=== PATIENT | male | born 1945 | race Caucasian/White ===

== ENCOUNTER → 2016-10-20 | Outpatient (CLI) | payer BC ==
[2016-10-20 12:33] LABS: BLOOD UREA NITROGEN 24 mg/dl (7-18); BUN/CREATININE RATIO 15.8 (10-20); CARBON DIOXIDE 28 mmol/L (21-32); CHLORIDE 106 mmol/L (98-107); GLUCOSE 93 mg/dl (70-99); POTASSIUM 4.5 mmol/L (3.5-5.1); SODIUM 140 mmol/L (136-145)
[2016-10-20 12:38] LABS: CHOLESTEROL 293 mg/dl (0-200); CHOLESTEROL/HDL RATIO 6.2; HDL CHOLESTEROL 47 mg/dl; LDL CHOLESTEROL CALCULATED 222 mg/dl; TRIGLYCERIDES 119 mg/dl (0-150); VERY LOW DENSITY LIPOPROT CALC 24 mg/dl
== END | disposition home or self-care (01) ==
LOC: C.LABPVFM 08:15
PROVIDERS: ATTEND Family Medicine
DX: E78.5 Hyperlipidemia, unspecified (principal); I10 Essential (primary) hypertension

== ENCOUNTER → 2016-12-12 | Outpatient (CLI) | payer BC ==
[2016-12-12 13:08] LABS: BLOOD UREA NITROGEN 20 mg/dl (7-18); BUN/CREATININE RATIO 16.9 (10-20); CALCIUM 9.1 mg/dl (8.5-10.1); CARBON DIOXIDE 28 mmol/L (21-32); CHLORIDE 105 mmol/L (98-107); GLUCOSE 99 mg/dl (70-99); SODIUM 140 mmol/L (136-145)
[2016-12-12 14:17] LABS: URINE TOTAL PROTEIN < 5.0 mg/dl (0-11.9)
== END | disposition home or self-care (01) ==
LOC: C.LABPVFM 08:38
PROVIDERS: ATTEND Family Medicine
DX: I10 Essential (primary) hypertension (principal); R79.89 Other specified abnormal findings of blood chemistry

== ENCOUNTER → 2017-07-16 | Outpatient (CLI) | payer BC ==
[2017-07-16 12:15] LABS: HEMATOCRIT 46.5 % (42-52); MEAN CELL VOLUME 88.9 fL (80-100); MEAN CORPUSCULAR HEMOGLOBIN 31.7 pg (25-34); MEAN CORPUSCULAR HGB CONC 35.7 g/dl (32-36); MEAN PLATELET VOLUME 9.4 fL (7.4-10.4); PLATELET COUNT 210 K/uL (130-400); RED BLOOD COUNT 5.23 M/uL (4.7-6.1); WHITE BLOOD COUNT 7.54 K/uL (4.8-10.8)
[2017-07-16 12:33] LABS: ESTIMATED AVERAGE GLUCOSE 105 mg/dl; HA1C FLAG Normal (Normal)
[2017-07-16 17:53] LABS: CHOLESTEROL/HDL RATIO 4.3
[2017-07-16 17:59] LABS: ALT/SGPT 44 U/L (12-78); AST/SGOT 26 U/L (15-37); BLOOD UREA NITROGEN 19 mg/dl (7-18); BUN/CREATININE RATIO 15.3 (10-20); CALCIUM 8.9 mg/dl (8.5-10.1); CARBON DIOXIDE 29 mmol/L (21-32); CHLORIDE 105 mmol/L (98-107); CREATININE 1.24 mg/dl (0.60-1.40); GLUCOSE 82 mg/dl (70-99); POTASSIUM 3.8 mmol/L (3.5-5.1); SODIUM 138 mmol/L (136-145)
[2017-07-16 18:01] LABS: ALB/GLOB RATIO 1.1 (0.9-2); ALKALINE PHOSPHATASE 67 U/L (45-117)
== END | disposition home or self-care (01) ==
LOC: C.LABBFT 10:40
PROVIDERS: ATTEND Internal Medicine
DX: I10 Essential (primary) hypertension (principal); E78.5 Hyperlipidemia, unspecified; N64.59 Other signs and symptoms in breast; E87.6 Hypokalemia; R73.01 Impaired fasting glucose

== ENCOUNTER 2024-10-10 15:05 | Observation (INO) ==
[2024-10-10 15:42] LABS: Basophils % (auto) 1.2 %; Eosinophils # (auto) 0.27 K/uL (0.00-0.50); Eosinophils % (auto) 3.2 %; Immature Granulocytes # (auto) 0.02 K/uL (0.01-0.20); Immature Granulocytes % (auto) 0.2 %; Lymphocytes # (auto) 1.63 K/uL (1.20-3.40); Lymphocytes % (auto) 19.4 %; Mean Corpuscular Hemoglobin 30.8 pg (25.0-34.0); Mean Corpuscular Hgb Conc 35.6 g/dL (32.0-36.0); Mean Corpuscular Volume 86.7 fL (80.0-100.0); Mean Platelet Volume 9.4 fL (9.4-12.4); Monocytes % (auto) 9.5 %; Neutrophils % (auto) 66.5 %; Platelet Count 205 K/uL (130-400); RDW Coefficient of Variation 12.2 % (11.5-14.5); RDW Standard Deviation 38.5 fL (36.4-46.3); Red Blood Count 5.19 M/uL (4.70-6.10); White Blood Count 8.42 K/ul (4.8-10.8)
[2024-10-10 15:59] LABS: Albumin Globulin Ratio 1.4 (0.9-2); Albumin Level 4.5 gm/dl (3.4-5.0); BUN Creatinine Ratio 11.4 (10-20); Bilirubin,Total 1.2 mg/dl (0.2-1.0); Calcium 9.7 mg/dl (8.6-10.3); Creatinine Clr Calc Pharmacy 60.8 ml/min; Globulin 3.2 gm/dl (2.5-4.0); Potassium 3.7 mmol/L (3.5-5.1); Total Protein 7.7 gm/dl (6.0-8.3)
[2024-10-10 16:05] LABS: Troponin I High Sensitivity 6.5 pg/ml (0-20)
[2024-10-10 16:13] LABS: Partial Thromboplastin Time 26 Seconds (21-31); Prothrombin Time 10.9 Seconds (9.0-12.0)
--- NOTE | 2024-10-10 16:26 | XRay Report ---
EXAM: Radiograph of the Chest 1 View INDICATION: Hypertension TECHNIQUE: Frontal view of the chest. COMPARISON: No relevant prior studies available. FINDINGS: Lungs and pleural spaces: No consolidation or pulmonary edema. No pleural effusion or pneumothorax. Heart: Shape and configuration within normal limits allowing for technique. Mediastinum: Normal contour. Bones/joints: No fracture, erosion or dislocation. Soft tissues: No abnormality noted. No radiopaque foreign body noted. Vasculature: The aorta is ectatic with mild arch calcification. Upper abdomen: No abnormality noted. IMPRESSION: No acute cardiopulmonary disease. Ectatic aorta is generally an incidental finding. If there is clinical concern for acute aortic abnormality, CT angiogram of the chest may be of benefit. ACT 112: N/A Electronically signed by Veronica Love 10-10-2024 4:24 PM
--- NOTE | 2024-10-10 17:29 | Emergency Department Note ---
History of Present Illness General Chief complaint: Hypertension Stated complaint: HIGH BLOOD PRESSURE Time Seen by Provider: 10/10/24 17:07 History of Present Illness This is a 79-year-old male that presents to the emergency department via private vehicle with complaints of "elevated blood pressure". The patient states that he normally checks his blood pressure about once a week. He notes that this past week has been unusually high, measuring into the 180s yesterday and today. He denies any headache but notes the head feels "heavy". The patient denies any fevers, chills, nausea or vomiting. No chest pain or shortness of breath. No dizziness or vision change. The patient does note that over the past few days while working with firewood and such he notes some shortness of breath with exertion. He questions if perhaps this could be just some deconditioning. The patient does take benazepril, last dose was this morning and was 40 mg. Home Medications Medication Instructions Recorded Confirmed Type simvastatin 40 mg tablet 40 mg PO HS #90 tabs 12/26/19 10/10/24 Rx garlic 300 mg PO DAILY 06/24/20 10/10/24 History rzematbzjmhw-ynp-zyefn acid-vit 1 tab PO DAILY 06/24/20 10/10/24 History K-lycop 400 mcg-20 mcg-370 mcg tablet (Men's 50 Plus Multivitamin) omega-3 fatty acids 1,000 mg 1,000 mg PO DAILY 06/24/20 10/10/24 History capsule (Fish Oil Concentrate) benazepril 20 mg tablet 40 mg PO DAILY 10/10/24 10/10/24 History potassium 99 mg tablet 99 mg PO DAILY 10/10/24 10/10/24 History Allergies Allergy/AdvReac Type Severity Reaction Status Date / Time Penicillins Allergy Intermediate throat Verified 10/10/24 20:34 swelling Past Med/Surg History Problem List (Updated 10/10/24 @ 23:27 by Miquel Dominguez PA-C) Dyspnea on exertion (Acute) Hypertensive urgency (Acute) Erectile disorder due to 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 Screening for malignant neoplasm of prostate Hypertension (Chronic) Hypercholesteremia (Chronic) Medical History Diverticulosis of colon Hand injury Knee pain, left Myalgia Olfactory hallucination Swelling, mass, or lump in chest Tear of medial collateral ligament of left knee Surgical History H/O spinal fusion Family History Father Coronary heart disease Bone cancer Myocardial infarction Mother Emphysema lung Grandmother (Paternal) Diabetes Denies family history of Ovarian cancer Prostate cancer Breast cancer Colorectal cancer Social History Smoking Status: Former smoker Tobacco Type: Cigarettes Age Started Using Tobacco: 15; Age Quit Using Tobacco: 31; packs per day: 2; Smoking End Date: "When I was 31"; Second Hand Exposure: Yes; Do You Dip or Chew Tobacco: No; Hx Alcohol Use: No Hx Substance Use: No Preferred Language: Georgian Communication Ability: Effective Visual Impairment: No Limitations Hearing Ability: Hard of Hearing Campaign Assistant Required: No Beliefs That Will Affect Care: None marital status: Current Living Situation: Spouse current occupational status: retired current occupation: retired from [employer] Other Information That Helps Us Care for You: No Feels Safe at Home: Yes Safety Concerns: Feels Safe At This Time Childhood Exposure to Second-Hand Smoke: Yes Diet: low carbohydrate and low salt Dental Care, Regularly: Yes Physical Activity Frequency: Daily Seatbelt Use: sometimes Sunscreen Use: Yes Assistive Devices: Glasses Review of Systems A total of 10 systems reviewed and were otherwise negative Physical Exam Vital Signs Vital Signs - 24 hr 10/10/24 15:11 10/10/24 16:54 10/10/24 16:54 Temperature 36.6 C Temperature Source Temporal Artery Scan Pulse Rate 75 Pulse Rate [Apical] 64 Pulse Rhythm Pulse Rhythm [Apical] Regular Pulse Strength [Apical] Normal Respiratory Rate 14 20 Respiratory Effort / Characteristics Non-Labored Spontaneous Non-Labored Spontaneous Respiratory Depth Normal Normal Respiratory Pattern Regular Blood Pressure 195/94 H Blood Pressure [Right Arm] 191/117 H Blood Pressure Mean 127 Blood Pressure Mean [Right Arm] 141 Blood Pressure Position [Right Arm] Sitting Pulse Oximetry 94 95 Oxygen Delivery Method Room Air Room Air Room Air Sepsis Recent Fever Within 48 Hours No Sepsis New/Unexplained Change in Mental Status No Sepsis Action Taken by Nursing No Action Required 10/10/24 16:54 10/10/24 16:56 10/10/24 17:27 Temperature Temperature Source Pulse Rate 66 65 Pulse Rate [Apical] 65 Pulse Rhythm Regular Pulse Rhythm [Apical] Regular Pulse Strength [Apical] Normal Respiratory Rate 20 20 Respiratory Effort / Characteristics Non-Labored Spontaneous Respiratory Depth Normal Respiratory Pattern Regular Blood Pressure Blood Pressure [Right Arm] 198/111 H Blood Pressure Mean Blood Pressure Mean [Right Arm] 140 Blood Pressure Position [Right Arm] Lying Pulse Oximetry 97 95 Oxygen Delivery Method Room Air Room Air Sepsis Recent Fever Within 48 Hours Sepsis New/Unexplained Change in Mental Status Sepsis Action Taken by Nursing 10/10/24 19:34 Temperature Temperature Source Pulse Rate Pulse Rate [Apical] 91 H Pulse Rhythm Pulse Rhythm [Apical] Regular Pulse Strength [Apical] Normal Respiratory Rate 18 Respiratory Effort / Characteristics Non-Labored Spontaneous Respiratory Depth Normal Respiratory Pattern Regular Blood Pressure Blood Pressure [Right Arm] 124/98 Blood Pressure Mean Blood Pressure Mean [Right Arm] 106 Blood Pressure Position [Right Arm] Sitting Pulse Oximetry 95 Oxygen Delivery Method Room Air Sepsis Recent Fever Within 48 Hours Sepsis New/Unexplained Change in Mental Status Sepsis Action Taken by Nursing VITAL SIGNS - Vital signs and nursing notes were reviewed. Hypertensive, otherwise stable and afebrile. GENERAL -79-year-old male appearing his stated age who is in no acute distress. Communicates well with provider and answers questions appropriately. SKIN - Without rashes. No meningeal or petechial rash. HEAD - NC/AT. EYES - PERRL with EOMI bilaterally. Sclera anicteric. EARS - No deformities of external structures noted on gross examination bilaterally. NOSE - Midline and without cyanosis. No epistaxis or purulent drainage noted. MOUTH/OROPHARYNX - Without perioral cyanosis. NECK - Neck with FROM. No nuchal rigidity. LUNGS - Chest wall symmetric without accessory muscle use, intercostals retractions, or central cyanosis. Normal vesicular breath sounds CTA B/L. No wheezes, rales, or rhonchi appreciated. CARDIAC - RRR EXTREMITIES - No clubbing or peripheral cyanosis. +5/5 strength noted in UE/LE bilaterally. NEUROLOGIC - Cranial nerves II through XII grossly intact. PSYCH -alert, oriented and pleasant on exam. Course Administered Medications Enalapril Maleate (Enalapril Maleate 10 Mg Tab) 20 mg PO DAILY AGUILA Stop: 11/10/24 08:59 Last Admin: 10/11/24 07:48 Dose: 20 mg Documented By: KIM Enoxaparin Sodium (Enoxaparin Inj 40 Mg/0.4 Ml Syr) 40 mg SQ [facility] Stop: 11/09/24 23:14 Last Admin: 10/10/24 23:34 Dose: Not Given Documented By: BRITTANEYT Hydrochlorothiazide (Hydrochlorothiazide 25 Mg Tab) [facility] Stop: 11/10/24 08:59 Last Admin: 10/11/24 07:47 Dose: 12.5 mg Documented By: KIM Hydroxyzine HCl (Hydroxyzine Hcl 10 Mg Tab) 10 mg PO QID PRN PRN Reason: Anxiety Stop: 11/09/24 23:00 Last Admin: 10/10/24 23:34 Dose: 10 mg Documented By: BRITTANEYT Simvastatin (Simvastatin 40 Mg Tab) 40 mg PO [facility] Stop: 11/09/24 22:37 Last Admin: 10/10/24 23:33 Dose: 40 mg Documented By: TO Discontinued Medications Amlodipine Besylate (Amlodipine Besylate 5 Mg Tab) 5 mg PO NOW ONE Stop: 10/10/24 20:36 Last Admin: 10/10/24 20:58 Dose: 5 mg Documented By: RAJENDRA Hydralazine HCl (Hydralazine Hcl 20 Mg/Ml Vial) 5 mg IV NOW ONE Stop: 10/10/24 19:40 Last Admin: 10/10/24 20:20 Dose: Not Given Documented By: RAJENDRA Ioversol (Optiray 320 125ml) 119 ml IV ONCE ONE Stop: 10/10/24 17:51 Last Admin: 10/10/24 17:50 Dose: 119 ml Documented By: AURELIO Medical Decision Making Laboratory Data 10/11/24 06:29 10/11/24 06:29 Lab Results 10/10/24 Range/Units 15:20 WBC 8.42 (4.8-10.8) K/ul RBC 5.19 (4.70-6.10) M/uL Hgb 16.0 (14.0-18.0) g/dl Hct 45.0 (42.0-52.0) % MCV 86.7 (80.0-100.0) fL MCH 30.8 (25.0-34.0) pg MCHC 35.6 (32.0-36.0) g/dL RDW Std Deviation 38.5 (36.4-46.3) fL RDW Coeff of Pollo 12.2 (11.5-14.5) % Plt Count 205 (130-400) K/uL MPV 9.4 (9.4-12.4) fL Immature Gran % (Auto) 0.2 % Neut % (Auto) 66.5 % Lymph % (Auto) 19.4 % [place] % (Auto) 9.5 % Eos % (Auto) 3.2 % Baso % (Auto) 1.2 % Neut # (Auto) 5.60 (1.40-6.50) K/uL Lymph # (Auto) 1.63 (1.20-3.40) K/uL [place] # (Auto) 0.80 H (0.11-0.59) K/uL Eos # (Auto) 0.27 (0.00-0.50) K/uL Baso # (Auto) 0.10 (0.00-0.20) K/uL Immature Gran # (Auto) 0.02 (0.01-0.20) K/uL PT 10.9 (9.0-12.0) Seconds INR 1.0 (0.9-1.1) APTT 26 (21-31) Seconds PTT Ratio 1.0 Sodium 140 (136-145) mmol/L Potassium 3.7 (3.5-5.1) mmol/L Chloride 106 (98-107) mmol/L Carbon Dioxide 30 (21-32) mmol/L Anion Gap 4 (3-11) BUN 13 (6-23) mg/dl Creatinine 1.14 (0.6-1.4) mg/dl Est Cr Clr Drug Dosing 60.8 ml/min eGFR 65.83 BUN/Creatinine Ratio 11.4 (10-20) Glucose 91 (70-99(Fasting)) mg/dl Calcium 9.7 (8.6-10.3) mg/dl Total Bilirubin 1.2 H (0.2-1.0) mg/dl AST 24 (13-39) U/L ALT 24 (7-52) U/L Alkaline Phosphatase 73 (34-104) U/L Troponin I High Sens 6.5 (0-20) pg/ml Total Protein 7.7 (6.0-8.3) gm/dl Albumin 4.5 (3.4-5.0) gm/dl Globulin 3.2 (2.5-4.0) gm/dl Albumin/Globulin Ratio 1.4 (0.9-2) Imaging Data Radiologist's Impression: Chest X-Ray 10/10/24 15:15 EXAM: Radiograph of the Chest 1 View INDICATION: Hypertension TECHNIQUE: Frontal view of the chest. COMPARISON: No relevant prior studies available. FINDINGS: Lungs and pleural spaces: No consolidation or pulmonary edema. No pleural effusion or pneumothorax. Heart: Shape and configuration within normal limits allowing for technique. Mediastinum: Normal contour. Bones/joints: No fracture, erosion or dislocation. Soft tissues: No abnormality noted. No radiopaque foreign body noted. Vasculature: The aorta is ectatic with mild arch calcification. Upper abdomen: No abnormality noted. IMPRESSION: No acute cardiopulmonary disease. Ectatic aorta is generally an incidental finding. If there is clinical concern for acute aortic abnormality, CT angiogram of the chest may be of benefit. ACT 112: N/A Electronically signed by Veronica Love 10-10-2024 4:24 PM Chest CTA 10/10/24 17:28 Clinical history: Dyspnea on exertion Technique: Axial computed tomography images were obtained of the chest after the administration of intravenous contrast according to the CT angiogram protocol Findings: There is no definite sign of pulmonary embolism. There is a 6 mm nodule in the superior segment of the left lower lobe. There is a 14 x 5 mm oval mild opacity in the left upper lobe adjacent to the hilum that could represent either lymph node or a parenchymal nodule. There is a 1 cm nodule in the left upper lobe also. There is no pleural effusion or pneumothorax. There is no sign of pulmonary fibrosis or other diffuse interstitial process. There is peripheral bronchial occlusion in both lower lobes There is mild mediastinal and bilateral hilar adenopathy, with lymph nodes measuring up to 1.3 cm in short axis. The thoracic aorta appears unremarkable with no sign of aneurysm or dissection. There is no pericardial effusion. There is coronary atherosclerosis There is a partially visualized left renal cyst. No fracture is seen. No focal osseous lesion is evident Impression: 1. No definite sign of pulmonary embolism 2. Mild mediastinal and bilateral hilar adenopathy, nonspecific in nature 3. Several pulmonary nodules, indeterminate in nature. A follow-up chest CT is recommended in 3 months Electronically signed by Murali Herrera 10-10-2024 6:29 PM Head CTA 10/10/24 17:28 Technique: Axial computed tomography images were obtained of the brain before and after the administration of intravenous contrast according to the CT angiogram protocol Findings: There is mild calcified plaque within the cavernous and supraclinoid segments of the internal carotid arteries bilaterally, without stenosis No definite stenosis or aneurysm is seen of the anterior, middle, or posterior cerebral artery circulations. The visualized vertebral arteries and the basilar artery appear unremarkable Impression: No definite stenosis or aneurysm of the intracranial arteries Electronically signed by Murali Herrera 10-10-2024 6:32 PM Neck CTA 10/10/24 17:28 Technique: Axial computed tomography images were obtained of the neck after the administration of intravenous contrast according to the CT angiogram protocol Findings: No stenosis is seen of the common carotid arteries bilaterally. There is calcified plaque in the left carotid bulb, without stenosis. The remainder of the internal carotid arteries appear patent bilaterally. No stenosis of the external carotid arteries is seen The vertebral arteries are patent bilaterally with no significant stenosis seen. 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 Impression: No definite stenosis of the neck arteries Electronically signed by Murali Herrera 10-10-2024 6:35 PM [facility] Narrative Patient was seen and evaluated as above in room A09. Review was performed of triage nursing notes and vital signs. Patient presents to us today for evaluation of elevated blood pressure reading at home and a heaviness in the head sensation. After obtaining a thorough history and physical examination the above work up was performed. Options of care were discussed with the patient. IV access was established. Labs were drawn. No leukocytosis or concerning anemia. Coags normal. No emergent metabolic disturbance. Mild elevation of T. bili at 1.2. Troponin negative. 1523: An EKG was performed and per my interpretation revealed normal sinus rhythm at a rate of [address] elevation. Chest x-ray per my interpretation without acute process. Radiologist did note that there was ectatic aorta. With the patient having some dyspnea on exertion in the setting of hypertensive state we will proceed with CT angio of the head, neck, chest. Results of these are as above. These were essentially negative other than some mild mediastinal and bilateral hilar adenopathy and pulmonary nodules which will require follow-up. Patient does not have any signs of endorgan damage. Troponin here is negative. Versus risk of inpatient versus outpatient management reviewed. At this time through shared medical decision making we will proceed with inpatient management further assessment. Case discussed with the hospitalist service. Please refer to further documentation regarding his stay. GCS: 15 In the evaluation and treatment of this patient the following differential diagnoses were entertained: WA, PE, dissection, electrolyte disturbance, hypertensive urgency/emergency, among others Attending Attestation: I Connor Whitney MD I have reviewed the advanced practitioner's documentation and agree with the plan of care. I accept the responsibility for the associated risk of managing the patient. I performed a substantive portion of the visit including involvement in all aspects of medical decision making. Impression & Plan Hypertensive urgency, Dyspnea on exertion Discharge Plan Visit Data Chief Complaint: Hypertension Stated Complaint: HIGH BLOOD PRESSURE ED Provider: Connor Whitney ED Midlevel Provider: Miquel Dominguez Discharge Problem: Hypertensive urgency, Dyspnea on exertion Patient Disposition: Admitted As Inpatient Condition: Good Discharge Instructions Interventions: ED Discharge Assessment Last Done: 10/10/24 22:00
[2024-10-10] MEDS: OPTIRAY 320 125ml IV ONE (17:50)
--- NOTE | 2024-10-10 18:30 | CT Scan Report ---
Clinical history: Dyspnea on exertion Technique: Axial computed tomography images were obtained of the chest after the administration of intravenous contrast according to the CT angiogram protocol Findings: There is no definite sign of pulmonary embolism. There is a 6 mm nodule in the superior segment of the left lower lobe. There is a 14 x 5 mm oval mild opacity in the left upper lobe adjacent to the hilum that could represent either lymph node or a parenchymal nodule. There is a 1 cm nodule in the left upper lobe also. There is no pleural effusion or pneumothorax. There is no sign of pulmonary fibrosis or other diffuse interstitial process. There is peripheral bronchial occlusion in both lower lobes There is mild mediastinal and bilateral hilar adenopathy, with lymph nodes measuring up to 1.3 cm in short axis. The thoracic aorta appears unremarkable with no sign of aneurysm or dissection. There is no pericardial effusion. There is coronary atherosclerosis There is a partially visualized left renal cyst. No fracture is seen. No focal osseous lesion is evident Impression: 1. No definite sign of pulmonary embolism 2. Mild mediastinal and bilateral hilar adenopathy, nonspecific in nature 3. Several pulmonary nodules, indeterminate in nature. A follow-up chest CT is recommended in 3 months Electronically signed by Murali Herrera 10-10-2024 6:29 PM
--- NOTE | 2024-10-10 18:32 | CT Scan Report ---
Technique: Axial computed tomography images were obtained of the brain before and after the administration of intravenous contrast according to the CT angiogram protocol Findings: There is mild calcified plaque within the cavernous and supraclinoid segments of the internal carotid arteries bilaterally, without stenosis No definite stenosis or aneurysm is seen of the anterior, middle, or posterior cerebral artery circulations. The visualized vertebral arteries and the basilar artery appear unremarkable Impression: No definite stenosis or aneurysm of the intracranial arteries Electronically signed by Mruali Herrera 10-10-2024 6:32 PM
--- NOTE | 2024-10-10 18:35 | CT Scan Report ---
Technique: Axial computed tomography images were obtained of the neck after the administration of intravenous contrast according to the CT angiogram protocol Findings: No stenosis is seen of the common carotid arteries bilaterally. There is calcified plaque in the left carotid bulb, without stenosis. The remainder of the internal carotid arteries appear patent bilaterally. No stenosis of the external carotid arteries is seen The vertebral arteries are patent bilaterally with no significant stenosis seen. 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 Impression: No definite stenosis of the neck arteries Electronically signed by Murali Herrera 10-10-2024 6:35 PM
--- NOTE | 2024-10-10 19:40 | History & Physical Report ---
Date of Service October 10, 2024 Assessment & Plan (1) Hypertensive urgency: Plan: Patient is 79-year-old male with PMH HTN, HLD presented to ER with complaint of high blood pressure x 1 day. Started checking BP at home and noted to have elevated BP's of 184/135. Denies SANZ, CP, dizziness, paresthesias, weakness. H/O exertional SOB with carrying wood. In ER BP 195/94, 198/111 CXR: No acute cardiopulmonary disease. Ectatic aorta is generally an incidental finding. CTA Head: No definite stenosis or aneurysm of the intracranial arteries CTA neck: No definite stenosis of the neck arteries CTA chest: No definite sign of pulmonary embolism. Mild mediastinal and bilateral hilar adenopathy, nonspecific in nature. Several pulmonary nodules, indeterminate in nature. A follow-up chest CT is recommended in 3 months Troponin negative. Initially ordereddose of Hydralazine however pt's BP self improves during ER course and it was not given Rechecked BP in ER Right arm BP: 159/95, Left arm BP: 167/100 at 20:02 and 20:03 Continues to deny any active CP, SOB, SANZ, dizziness, vision changes or paresthesias Give dose of amlodipine tonight Continue home benazepril Restart HCTZ. Will start at 12.5mg and likely need to titrate to his prior 25mg daily dose. Can consider starting aspirin 81mg daily Obtain resting echo EKG in am (2) Hypercholesteremia: Plan: Outpatient lipid panel on 10/06/2024: Total cholesterol: 233, LDL: 167, HDL: 46, triglycerides: 98 Continue atorvastatin #Abnormal CT Chest: CTA chest: Mild mediastinal and bilateral hilar adenopathy, nonspecific in nature. Several pulmonary nodules, indeterminate in nature. Will need follow-up chest CT in 3 months DVT Prophylaxis Lovenox SQ Admit med tele Full Code as per discussion with pt Follows with Dr Reinoso for routine care Pt was seen and care coordinated with Dr Moore. See addendum I spent a total of 65 minutes reviewing notes, outpatient records, labs, medication, coordinating, documenting and providing care for this patient excluding time spent in the performance of separately billed services and excluding time spent by another provider/QHP. History of Present Illness Chief Complaint: HTN Primary Care Provider: Jarvis Reinoso MD Patient is 79-year-old male with PMH HTN, HLD presented to ER with complaint of high blood pressure x 1 day. Per outpatient chart review seen by PCPs office on 10/06/2024 and BP was 144/90. Patient is on benazepril 40mg daily. He reports was previously also on HCTZ 25 mg daily. Patient states he self stopped HCTZ approximately 1 year ago. Patient reports since his blood pressures had been fairly controlled at PCPs office it was not restarted. Patient states typically will take his blood pressure at home once a month and SBP usually around 140. He reports his had a cardiac cath and stent placed last week and is monitoring her blood pressures at home so patient decided this week that he would start monitoring his blood pressure at home as well. States yesterday blood pressure 180s over 110s. He states he took his blood pressure several more times and continued to be elevated so he came to the ER for further evaluation. Patient denies any SANZ, chest pain, dizziness. He reports will have shortness of breath with exertion of carrying wood and sometimes exertion with walking on a incline. He states he is able to climb 2 sets of stairs without any shortness of breath. He states over the past several months has had 2 episodes of blurry vision. Last was 1 month ago. Did not check his BP's at those times. Denies fever/chills, diaphoresis, N/V/D/C, syncope, other vision changes, neck pain, CP, orthopnea, palpitations, cough, sore throat, rhinorrhea, abdominal pain, paresthesias, weakness, extremity weakness, extremity edema, rashes, urinary symptoms. Allergies Allergy/AdvReac Type Severity Reaction Status Date / Time Penicillins Allergy Intermediate throat Verified 10/10/24 20:34 swelling Home Medications Medication Instructions Recorded Confirmed Type simvastatin 40 mg tablet 40 mg PO HS #90 tabs 12/26/19 10/10/24 Rx garlic 300 mg PO DAILY 06/24/20 10/10/24 History iqxgnulqoqwt-pwn-uzgnk acid-vit 1 tab PO DAILY 06/24/20 10/10/24 History K-lycop 400 mcg-20 mcg-370 mcg tablet (Men's 50 Plus Multivitamin) omega-3 fatty acids 1,000 mg 1,000 mg PO DAILY 06/24/20 10/10/24 History capsule (Fish Oil Concentrate) benazepril 20 mg tablet 40 mg PO DAILY 10/10/24 10/10/24 History potassium 99 mg tablet 99 mg PO DAILY 10/10/24 10/10/24 History Past Med/Surg History Problem List (Updated 10/10/24 @ 23:27 by Miquel Dominguez PA-C) Dyspnea on exertion (Acute) Hypertensive urgency (Acute) Erectile disorder due to 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 Screening for malignant neoplasm of prostate Hypertension (Chronic) Hypercholesteremia (Chronic) Medical History Diverticulosis of colon Hand injury Knee pain, left Myalgia Olfactory hallucination Swelling, mass, or lump in chest Tear of medial collateral ligament of left knee Surgical History H/O spinal fusion Family History Father Coronary heart disease Bone cancer Myocardial infarction Mother Emphysema lung Grandmother (Paternal) Diabetes Denies family history of Ovarian cancer Prostate cancer Breast cancer Colorectal cancer Social History Smoking Status: Former smoker Tobacco Type: Cigarettes Age Started Using Tobacco: 15; Age Quit Using Tobacco: 31; packs per day: 2; Smoking End Date: "When I was 31"; Second Hand Exposure: Yes; Do You Dip or Chew Tobacco: No; Hx Alcohol Use: No Hx Substance Use: No Preferred Language: Hong Konger Communication Ability: Effective Visual Impairment: No Limitations Hearing Ability: Hard of Hearing Seo Team Lead Required: No Beliefs That Will Affect Care: None marital status: Current Living Situation: Spouse current occupational status: retired current occupation: retired from [employer] Other Information That Helps Us Care for You: No Feels Safe at Home: Yes Safety Concerns: Feels Safe At This Time Childhood Exposure to Second-Hand Smoke: Yes Diet: low carbohydrate and low salt Dental Care, Regularly: Yes Physical Activity Frequency: Daily Seatbelt Use: sometimes Sunscreen Use: Yes Assistive Devices: Glasses Review of Systems Review of Systems: All systems reviewed & are unremarkable except as noted in HPI & below Physical Exam Physical Exam: General: no distress, overweight male Head: normocephalic, atraumatic Eyes: conjunctiva non-injected, anicteric ENT: normal inspection external ears, nose, mucous membranes moist Neck: supple, trachea midline Lungs: clear, no respiratory distress, no wheezing/rhonchi/rales CV: RRR, no murmur, no pretibial edema Abd: normal BS, soft, non-tender Ext: no cyanosis, no calf tenderness Neuro: A&O x 3, no focal deficits noted, normal affect Skin: warm, dry Results & Data Results & Data Vital Signs (Past 12 Hours) Vital Signs Temp Pulse Pulse Resp BP BP Pulse Ox 10/10/24 19:34 91 H 18 124/98 95 10/10/24 17:27 65 20 198/111 H 95 10/10/24 16:56 65 10/10/24 16:54 66 20 97 10/10/24 16:54 10/10/24 16:54 64 20 191/117 H 95 10/10/24 15:11 36.6 C 75 14 195/94 H 94 O2 Del Method 10/10/24 19:34 Room Air 10/10/24 17:27 Room Air 10/10/24 16:56 10/10/24 16:54 Room Air 10/10/24 16:54 Room Air 10/10/24 16:54 Room Air 10/10/24 15:11 Room Air Laboratory Results Short CBC 10/10/24 Range/Units 15:20 WBC 8.42 (4.8-10.8) K/ul Hgb 16.0 (14.0-18.0) g/dl Hct 45.0 (42.0-52.0) % Plt Count 205 (130-400) K/uL BMP 10/10/24 15:20 Sodium 140 Potassium 3.7 Chloride 106 Carbon Dioxide 30 BUN 13 Creatinine 1.14 Glucose 91 Calcium 9.7 Liver Function 10/10/24 Range/Units 15:20 Total Bilirubin 1.2 H (0.2-1.0) mg/dl AST 24 (13-39) U/L ALT 24 (7-52) U/L Alkaline Phosphatase 73 (34-104) U/L Albumin 4.5 (3.4-5.0) gm/dl Diagnostic Findings Chest X-Ray 10/10/24 15:15 EXAM: Radiograph of the Chest 1 View INDICATION: Hypertension TECHNIQUE: Frontal view of the chest. COMPARISON: No relevant prior studies available. FINDINGS: Lungs and pleural spaces: No consolidation or pulmonary edema. No pleural effusion or pneumothorax. Heart: Shape and configuration within normal limits allowing for technique. Mediastinum: Normal contour. Bones/joints: No fracture, erosion or dislocation. Soft tissues: No abnormality noted. No radiopaque foreign body noted. Vasculature: The aorta is ectatic with mild arch calcification. Upper abdomen: No abnormality noted. IMPRESSION: No acute cardiopulmonary disease. Ectatic aorta is generally an incidental finding. If there is clinical concern for acute aortic abnormality, CT angiogram of the chest may be of benefit. ACT 112: N/A Electronically signed by Veronica Love 10-10-2024 4:24 PM Chest CTA 10/10/24 17:28 Clinical history: Dyspnea on exertion Technique: Axial computed tomography images were obtained of the chest after the administration of intravenous contrast according to the CT angiogram protocol Findings: There is no definite sign of pulmonary embolism. There is a 6 mm nodule in the superior segment of the left lower lobe. There is a 14 x 5 mm oval mild opacity in the left upper lobe adjacent to the hilum that could represent either lymph node or a parenchymal nodule. There is a 1 cm nodule in the left upper lobe also. There is no pleural effusion or pneumothorax. There is no sign of pulmonary fibrosis or other diffuse interstitial process. There is peripheral bronchial occlusion in both lower lobes There is mild mediastinal and bilateral hilar adenopathy, with lymph nodes measuring up to 1.3 cm in short axis. The thoracic aorta appears unremarkable with no sign of aneurysm or dissection. There is no pericardial effusion. There is coronary atherosclerosis There is a partially visualized left renal cyst. No fracture is seen. No focal osseous lesion is evident Impression: 1. No definite sign of pulmonary embolism 2. Mild mediastinal and bilateral hilar adenopathy, nonspecific in nature 3. Several pulmonary nodules, indeterminate in nature. A follow-up chest CT is recommended in 3 months Electronically signed by Murali Herrera 10-10-2024 6:29 PM Head CTA 10/10/24 17:28 Technique: Axial computed tomography images were obtained of the brain before and after the administration of intravenous contrast according to the CT angiogram protocol Findings: There is mild calcified plaque within the cavernous and supraclinoid segments of the internal carotid arteries bilaterally, without stenosis No definite stenosis or aneurysm is seen of the anterior, middle, or posterior cerebral artery circulations. The visualized vertebral arteries and the basilar artery appear unremarkable Impression: No definite stenosis or aneurysm of the intracranial arteries Electronically signed by Murali Herrera 10-10-2024 6:32 PM Neck CTA 10/10/24 17:28 Technique: Axial computed tomography images were obtained of the neck after the administration of intravenous contrast according to the CT angiogram protocol Findings: No stenosis is seen of the common carotid arteries bilaterally. There is calcified plaque in the left carotid bulb, without stenosis. The remainder of the internal carotid arteries appear patent bilaterally. No stenosis of the external carotid arteries is seen The vertebral arteries are patent bilaterally with no significant stenosis seen. 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 Impression: No definite stenosis of the neck arteries Electronically signed by Murali Herrera 10-10-2024 6:35 PM Supervising Physician Co-Signing Physician Notes delayed entry date of service noted above Attending Addendum: Case reviewed with the advanced practitioner. I have personally performed a history and physical examination on the patient. I have reviewed the advanced practitioner's documentation on the date of service referenced in note, and I agree with, and take responsibility for the plan of care. please refer to her notes for full details patient seen and examined, records reviewed by myself as well on exam, patient seen resting in bed, comfortable patient's son at bedside patient states he feels fine overall no headache, dizziness, chest pain, dyspnea, palpitations no other symptoms VS noted and reviewed oriented x3, not in distress, speaks in sentences with no effort nor accessory muscle use normal rate, regular rhythm, no murmurs clear breath sounds bilaterally non distended, soft, nontender no bipedal edema, erythema, warmth no neuro deficits all labs, imaging noted and reviewed ASSESSMENT AND PLAN> UNCONTROLLED HYPERTENSION Amlodipine 5mg this evening in AM, add HCTZ 12.5mg daily to usual Benazepril Echo CORONARY ATHEROSCLEROSIS seen on CT chest will need ASA once BP controlled further work up as outpatient PULMONARY NODULES Further work up, management, and ff up as outpatient other diagnoses and plan of care as per advanced practitioner's notes I spent a total of 35 minutes coordinating, documenting, and providing care for this patient, excluding time spent in the performance of separately billed services or time spent by another provider/QHP. Pernell Moore MD
[2024-10-10] MEDS: hydrALAZINE HCL 20 MG/ML VIAL IV ONE (20:20)
[2024-10-10] MEDS: amLODIPine BESYLATE 5 MG TAB PO ONE (20:58)
[2024-10-10] MEDS ORDERED: ACETAMINOPHEN 325 MG TAB PO PRN (22:38)
[2024-10-10] MEDS ORDERED: POLYETHYLENE (MIRALAX) 17 GM PACK PO PRN (22:38)
[2024-10-10] MEDS ORDERED: ONDANSETRON INJ 2 MG/ML 2 ML VIAL IV PRN (22:38)
[2024-10-10] MEDS: SIMVASTATIN 40 MG TAB PO SCH (23:33)
[2024-10-10] MEDS: hydrOXYzine HCl 10 MG TAB PO PRN (23:34)
[2024-10-10] MEDS: ENOXAPARIN INJ 40 MG/0.4 ML SYR SQ SCH (23:34)
[2024-10-11 07:08] VITALS: RESP 18
[2024-10-11 07:27] LABS: Hematocrit (blood only) 45.9 % (42.0-52.0); Hemoglobin 16.3 g/dl (14.0-18.0); Mean Corpuscular Hemoglobin 30.9 pg (25.0-34.0); Mean Corpuscular Hgb Conc 35.5 g/dL (32.0-36.0); Mean Corpuscular Volume 87.1 fL (80.0-100.0); Mean Platelet Volume 9.4 fL (9.4-12.4); Platelet Count 207 K/uL (130-400); RDW Coefficient of Variation 12.4 % (11.5-14.5); RDW Standard Deviation 39.6 fL (36.4-46.3); Red Blood Count 5.27 M/uL (4.70-6.10); White Blood Count 8.19 K/ul (4.8-10.8)
[2024-10-11 07:41] LABS: BUN Creatinine Ratio 14.4 (10-20); Calcium 9.3 mg/dl (8.6-10.3); Creatinine Clr Calc Pharmacy 66.1 ml/min; Magnesium 2.1 mg/dl (1.7-2.4); Potassium 3.7 mmol/L (3.5-5.1)
[2024-10-11] MEDS: hydroCHLOROthiazide 25 MG TAB PO SCH (07:47)
[2024-10-11] MEDS: ENALAPRIL MALEATE 10 MG TAB PO SCH (07:48)
--- OUTSIDE RECORDS SUMMARY | 2024-10-11 07:56 | External Medical Summary | Summary of Care ---
Author Name Unknown Organization [facility] Address [address] [place] [address] Phone [phone] Care Team Providers Care Manager Willow Name Role Phone Jarvis Reinoso MD Primary Care Provider [phone] Encounter Details Date Type Department Care Team (Late st Contact Info) Description 08/27/2024 Population Health External Data Unspecified Department Allergies Active Allergy Reactions Criticality Noted Date Comments Penicillins Edema airway High 08/15/2010 documented as of this encounter (statuses as of 08/27/2024) Medications Multivitamin Adult Oral Tablet Take by mouth. Activ e Fish Oil 1000 MG Oral Capsule Take 1 Capsule by mouth in the morning. Active Garlic 10 MG Oral Capsule Take by mouth. Ac tive hydroCHLOROthiaz corina 50 MG Oral Tablet (Hydrodiuril)Ind ications:HTN, goal below 140/90 Take 1 Tablet (50 mg) by mouth in the morning. 90 Tablet 1 2 Active Triamcinolone Acetonide 0.1 % External Ointment (Aristocort)Gardenia cations:Irritant contact dermatitis, unspecified trigger Apply topically to affected area 2 times a day. To affected area. 80 g 3 Active Sildenafil Citrate 100 MG Oral TabletIndication s:Erectile dysfunction, unspecified erectile dysfunction type Take 1 Tablet by mouth daily as needed for Erectile Dysfunction. 5 Tablet 5 4 Active Benazepril HCl 20 MG Oral Tablet (Lotensin)Indica tions:HTN, goal below 140/90 TAKE TWO TABLETS BY MOUTH EVERY MORNING 200 Tablet 08/09/2024 10:41 AM EST 4 Active Simvastatin 40 MG Oral Tablet (Zocor)Indicatio ns:Dyslipidemia TAKE ONE TABLET BY MOUTH AT BEDTIME 90 Tablet 1 08/27/2024 6:49 AM EST 5 Active documented as of this encounter (statuses as of 08/27/2024) Active Problems Problem Noted Date Diagnosed Date Hx of nonmelanoma skin cancer 10/25/2023 Overview (10/25/2023): basal cell carcinoma (R tragal region of ear 10/27) HTN, goal below 140/90 08/16/2021 Dyslipidemia 08/16/2021 documented as of this encounter (statuses as of 08/27/2024) Immunizations Name Administration Dates Next Due Pneumococcal Conjugate Vacc, 13 Valent (Prevnar) 06/11/2015 Pneumococcal Polysaccharide PPV23 (Pneumovax) 06/16/2016 Seasonal Influenza Virus Vac cine, Unspecified Formulation 04/27/2020,05/08/2019,05/15/2018,06/08,04/28/2016,05/13/2015 TDAP, Age 7 and older, IM (Adacel) 04/06/2011 Varicella Zoster Vaccine (Adult) 04/28/2016 Zoster Vaccine Recombinant (Shingrix) 12/07/2020 ,09/07/2020 documented as of this encounter Social History Tobacco Use Types Packs/Day Years Used Date Smoking Tobacco: Former Cigarettes 2 15 0 08/06/1958 - 08/06/1973 Smokeless Tobacco: Never Alcohol Use Standard Drinks/Week Comments No 0 (1 standard drink = 0.6 oz pur e alcohol) PHQ-2 Answer Date Recorded PHQ Adult Total Score 0 08/17/2022 Hunger Vital Sign Answer Date Recorded Within the past 12 months, y ou worried that your food would run out before you got the money to buy more. Never true 10/03/19 24 Within the past 12 months, t he food you bought just didn't last and you didn't have money to get more. Never true 10/03/2023 Childcare Answer Date Recorded Do you feel overwhelmed with taking care of a child, family member or friend? No 10/03/2023 Does your family need help f inding childcare? (Household - for ages 0-17 years) Not on file 10/03/2023 Clothing Answer Date Recorded Have you been unable to get clothing when it was really needed? No 10/03/2023 Is your family able to get c lothes or diapers when needed? (Household - for ages 0-17 years) Not on file 10/03/2023 Personal Safety Answer Date Recorded Do you feel unsafe or have concerns for your saf ety? No 10/03/2023 Do you have concerns for you r family's safety? (Household - for ages 0-17 years) Not on file 10/03/2023 Utilities Answer Date Recorded Do you have trouble paying y our heating, water, or electric bill? No 10/03/2023 Is your family able to pay t he heat, water, or electric bill? (Household - for ages 0-17 years) Not on file 10/03/2023 Does your family have access to good internet? (Household - for ages 0-17 years) Not on file 10/03/2023 Employment Status Answer Date Recorded Are you unemployed or without regular income? No 10/03/2023 [facility] the [facility] have a [facility] source [facility] income? (Household - for ages 0-17 years) Not on file 10/03/2023 Social Connections Answer Date Recorded How often do you feel lonely or isolated from th ose around you? Never 10/03/2023 Financial Resource Strain Answer Date R ecorded Do you have any trouble payi ng for your medications, or do you think you might in the future? No 10/03/2023 Does your family have troubl e paying for medicine? (Household - for ages 0-17 years) Not on file 10/03/2023 Transportation Needs Answer Date Record ed READ ONLY Do you have troubl e getting a ride to medical visits or work? Never True 10/03/2023 Does your family have a hard time getting a ride to doctors visits? (Household - for ages 0-17 years) Not on file 10/03/2023 Has lack of transportation k ept you from medical appointments, meetings, work, or from getting things needed for daily living? Check all that apply. (Adult - for ages 18 years and over) Not on file 10/03/2023 Do you (or your family) have trouble finding or paying for a ride (transportation)? (Household - for ages 0-17 years) Not on file 10/03/2023 Housing Stability Answer Date Recorded Do you currently live in a s helter or have no steady place to sleep at night? No 10/03/2023 READ ONLY Do you think you a re at risk of becoming homeless? No 10/03/2023 Does your family worry about paying for your home or becoming homeless? (Household - for ages 0-17 years) Not on file 0 10/03/2023 Are you homeless or worried that you might be in the future? (Adult - for ages 18 years and over) Not on file Are you (or your family) lloyd eless or worried that you might be in the future? (Household - for ages 0-17 years) Not on file Food Insecurity Answer Date Recorded Do you need food for this week? No 10/03/2023 Are you able to get enough f ood for your family? (Household - for ages 0-17 years) Not on file 10/03/2023 Does your family need food t his week? (Household - for ages 0-17 years) Not on file 10/03/2023 Do you always have enough fo od for your family? (Household - for ages 0-17 years) Not on file 10/03/2023 Sex and Gender Information Value Date Recorded Sex Assigned at Male 10/03/2023 7:48 AM EST Legal Sex Male 7:10 AM EST Gender Identity Male 10/03/2023 7:48 AM EST Sexual Orientation Straight 10/03/2023 7: 48 AM EST documented as of this encounter Plan of Treatment Upcoming Encounters Date Type Department Care Team (Late st Contact Info) Description 10/06/2024 8:20 AM EST [facility] [address] [id number] Jarvis Reinoso MD [address] [address] 12/17/2024 3:30 PM EDT Office Visit Dermatology, [address] [place] [address] Giuliana Mena MD [address] [place] [address] 06/23/2025 2:20 PM EST Office Visit Dermatology, [address] [place] [phone] Lilian Morillo PA-C [address] [place] [address] [place] [id number] Health Maintenance Due Date Last Done Comments Albumin/Creatinine Ratio 1963 Hepatitis C Screening 1963 Adult Wellness Visit 2012 DTap/Tdap Vaccines (2 - Td or Tdap) 04/06/2021 04/06/2011 *BASELINE EKG FOR HTN 08/19/2021 Depression Screening 08/17/2023 08/17/2022 COVID-19 Vaccine ( season) 2024 Influenza Vaccine (FLU shot) (#1) 2024 04/27/2020, 05/08/2019, 05/15/2018, Additional history exists GFR 09/17/2024 09/17/2023, 04/2023, 06/20/2022, Additional history exists Pneumococcal Vaccine: 50+ Years Completed 06/16/2016, 06/11/2015 Zoster Vaccines Completed 12/07/2020, 09/2020, 04/28/2016 HPV (Gardasil) Vaccine Aged Out No lo nger eligible based on patient's age to complete this topic Hepatitis B Vaccine Aged Out No longe r eligible based on patient's age to complete this topic MENINGOCOCCAL (MENACTRA/MENVEO) Aged Out No longer eligible based on patient's age to complete this topic documented as of this encounter Medical Devices Not on filedocumented as of this encounter Care Teams Manager Willow Relationship Specialty Start Date End Date Jarvis Reinoso MD PCP - General Family Medicine 10/05/20 documented as of this encounter
--- OUTSIDE RECORDS SUMMARY | 2024-10-11 07:56 | External Medical Summary ---
Author Name Unknown Address Unknown Organization [id number][place] [place] [address] [facility] [address] Laboratory Report Ordering Provider Test Date Status SONAM,DURA 10/06/2024 09:50:28 Final Observation Date Value Abnormality Reference (Units ) Status Triglyceride 10/06/2024 09:50:28 98 <=174 ( mg/dL) Final Triglyceride Reference Range s (mg/dL):
<150 Acceptable
150-174 Borderline high
175-499 High
>=500 Very high Cholesterol 10/06/2024 09:50:28 233 Above high normal <200 (mg/dL) Final Total Cholesterol Reference Ranges (mg/dL):
<200 Desirable
200-239 Borderline high
>=240 High HDL 10/06/2024 09:50:28 46 >39 (mg/dL ) Final HDL Cholesterol Reference Ra nges (mg/dL):
>=60 High (Desirable)
<50 Low (Undesirable) For Females
<40 Low (Undesirable) For Males NON-HDL CHOLESTEROL 10/06/2024 09:50:28 187 Above high normal <=159 (mg/dL) Final Non-HDL Cholesterol Referenc e Range (mg/dL):
<100 Target level for high risk ASCVD patient
<130 Optimal for general population
130-159 Near optimal for general population
160-189 Borderline High
190-219 High
>=220 Very High LDL, (calculated) 10/06/2024 09:50:28 167 Above high n ormal <=129 (mg/dL) Final LDL Cholesterol Reference Ra nges (mg/dL):
<70 Target level for high risk ASCVD patient
<100 Optimal for general population
100-129 Near optimal for general population
130-159 Borderline high
160-189 High
>=190 Very high Performing Location [facility] [place] [address] [facility] [address]
--- OUTSIDE RECORDS SUMMARY | 2024-10-11 07:56 | External Medical Summary | Summary of Care ---
Author Name Unknown Organization [facility] Address [address] [place] [address] Phone [phone] Care Team Providers Care Inpatient Nursing Aide Name Role Phone Sasha Bonilla MD Primary Care Provider [phone] Reason for Visit * Reason Comments Medication Refill Encounter Details Date Type Department Care Team (Late st Contact Info) Description 08/21/2024 Refill [facility] [address] [place] [phone] Sasha Bonilla MD [address] [facility] [place] [id number] Dyslipidemia Allergies Active Allergy Reactions Criticality Noted Date Comments Penicillins Edema airway High 08/15/2010 documented as of this encounter (statuses as of 08/21/2024) Medications Multivitamin Adult Oral Tablet Take by mouth. Active Fish Oil 1000 MG Oral Capsule Take 1 Capsule by mouth in the morning. Active Garlic 10 MG Oral Capsule Take by mouth. Active hydroCHLOROthia zide 50 MG Oral Tablet (Hydrodiuril)In dications:HTN, goal below 140/90 Take 1 Tablet (50 mg) by mouth in the morning. 90 Tablet 1 2 Active Triamcinolone Acetonide 0.1 % External Ointment (Aristocort)Ind ications:Irrita nt contact dermatitis, unspecified trigger Apply topically to affected area 2 times a day. To affected area. 80 g 3 Active Sildenafil Citrate 100 MG Oral TabletIndicatio ns:Erectile dysfunction, unspecified erectile dysfunction type Take 1 Tablet by mouth daily as needed for Erectile Dysfunction. 5 Tablet 5 4 Active Benazepril HCl 20 MG Oral Tablet (Lotensin)Indic ations:HTN, goal below 140/90 TAKE TWO TABLETS BY MOUTH EVERY MORNING 200 Tablet 08/09/2024 10:41 AM EST 4 Active Simvastatin 40 MG Oral Tablet (Zocor)Indicati ons:Dyslipidemi a TAKE ONE TABLET BY MOUTH AT BEDTIME 90 Tablet 1 5 Active Simvastatin 40 MG Oral Tablet (Zocor)Indicati ons:Dyslipidemi a TAKE ONE TABLET BY MOUTH AT BEDTIME 90 Tablet 3 05/26/2024 8:57 AM EDT 4 08/21/19 25 Discontinu ed(Refill) documented as of this encounter (statuses as of 08/21/2024) Active Problems Problem Noted Date Diagnosed Date Hx of nonmelanoma skin cancer 10/25/2023 Overview (10/25/2023): basal cell carcinoma (R tragal region of ear 10/27) HTN, goal below 140/90 08/16/2021 Dyslipidemia 08/16/2021 documented as of this encounter (statuses as of 08/21/2024) Immunizations Name Administration Dates Next Due Pneumococcal [...] No 10/03/2023 Does the household have a re gular source of income? (Household - for ages [...] AM EST documented as of this encounter Miscellaneous Notes * Telephone Encounter - Osman Lieberman [facility] - 08/21/2024 8:59 AM ESTSigned Prescriptions: Disp Refills Simvastatin 40 MG Oral Tablet (Zocor) 90 Tab*1 Sig: TAKE ONE TABLET BY MOUTH AT BEDTIMEAuthorizing Provider: SASHA BONILLA User: OSMAN LIEBERMAN----- documented in this encounter Plan of Treatment Upcoming Encounters Date Type Department Care Team (Late st Contact Info) Description 10/06/2024 8:20 AM EST [facility] [place] [facility] [address] [facility] [place] [phone] Sasha Bonilla MD [address] [facility] [place] [id number] 12/17/2024 3:30 PM EDT Office Visit Dermatology[address] [place] [address] Giuliana Mena MD [address] [place] [address] 06/23/2025 2:20 PM EST Office Visit [facility]atologyMary [address] [place] [address] Lilian Morillo PA-C [address] [place] [address] [place] [id number] Health Maintenance Due Date Last Done Comments [...] Not on filedocumented as of this encounter Visit Diagnoses Diagnosis Dyslipidemia Other and unspecified hyperlipidemia documented in this encounter Care Teams Inpatient Nursing Aide Relationship Specialty Start Date End Date Sasha Bonilla MD PCP - General Family Medicine 10/05/20 documented as of this encounter
--- OUTSIDE RECORDS SUMMARY | 2024-10-11 07:56 | External Medical Summary ---
Author Name Unknown Address Unknown Organization K01:[facility] [place] [address] [facility] [address] Laboratory Report Ordering Provider Test Date Status CHAD BAEZ 10/06/2024 09:50:28 Final Observation Date Value Abnormality Reference (Units ) Status PSA 10/06/2024 09:50:28 5.05 Above high normal <4 .10 (ng/mL) Final Performing Location [facility] [address] [facility] [address]
--- OUTSIDE RECORDS SUMMARY | 2024-10-11 07:56 | External Medical Summary | Summary of Care ---
Author Name Unknown Organization [facility] Address [address] [facility] [address] Phone [phone] Care Team Providers Care Leather Tacker Name Role Phone Jarvis Reinoso MD Primary Care Provider [phone]- [phone] Reason for Visit * Reason Comments Physical-Exam Annual check up Encounter Details Date Type Department Care Team (Late st Contact Info) Description 10/06/2024 8:20 AM EST [facility] [place] [address] [address] Jarvis Reinoso MD [address] [facility] [place], [place] [id number] HTN, goal below 140/90*; Dyslipidemia; Dyspnea on exertion; Nocturia; Risk and functional assessment; Visual changes Allergies Active Allergy Reactions Criticality Noted Date Comments Penicillins Edema airway High 08/15/2010 documented as of this encounter (statuses as of 10/06/2024) Medications Multivitamin Adult Oral Tablet Take by mouth. Activ e Fish Oil 1000 MG Oral Capsule Take 1 Capsule by mouth in the morning. Active Garlic 10 MG Oral Capsule Take by mouth. Ac tive hydroCHLOROthiaz corina 50 MG Oral Tablet (Hydrodiuril)Ind ications:HTN, goal below 140/90 Take 1 Tablet (50 mg) by mouth in the morning. 90 Tablet 1 2 Active Additional Information Patient not taking.Reported on 10/06/2024 Triamcinolone Acetonide 0.1 % External Ointment (Aristocort)Gardenia [...] 1 08/27/2024 6:49 AM EST 5 Active Potassium Bicarbonate 99 MG Oral Capsule Take by mouth. Active Vitamin C 1000 MG Oral Tablet Take 1 Tablet by mouth in the morning. 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 Increased risk for Familial hypercholesterolemia (FH). Please click the link below for a brief summary of current clinical management recommendations for Familial Hypercholesterolemia. LDLR Hx of nonmelanoma skin cancer 10/25/2023 Overview (10/25/2023): basal cell carcinoma (R tragal region of ear 10/27) HTN, goal below 140/90 08/16/2021 Dyslipidemia 08/16/2021 documented as of this encounter (statuses as of 10/06/2024) Immunizations Name Administration Dates Next Due Pneumococcal [...] 0 08/06/1957 - 08/06/1973 Smokeless Tobacco: Never Tobacco Cessation:Counseling Given: Not Answered Alcohol Use Standard Drinks/Week Comments No 0 [...] ages 0-17 years) Not on file 10/03/2023 Food Insecurity Answer Date Recorded Within the past 12 months, y ou worried that your food would run out before you got the money to buy more. Never true 10/03/19 24 Within the past 12 months, t he food you bought just didn't last and you didn't have money to get more. Never true 10/03/2023 Do you need food for this week? No 10/03/2023 Sex and Gender Information Value Date Recorded Sex Assigned at Male 10/03/2023 7:48 AM EST Legal Sex Male 7:10 AM EST Gender Identity Male 10/03/2023 7:48 AM EST Sexual Orientation Straight 10/03/2023 7: 48 AM EST documented as of this encounter Last Filed Vital Signs Vital Sign Reading Time Taken Comments Blood Pressure 144/90 10/06/2024 8:40 AM EST Pulse 58 10/06/2024 8:33 AM EST Temperature 36.2 C (97.1 F) 10/06/2024 8:33 AM ES T Respiratory Rate 18 10/06/2024 8:33 AM EST Oxygen Saturation 97% 10/06/2024 8:33 AM EST Inhaled Oxygen Concentration - - Weight 105.1 kg (231 lb 9.6 oz) 10/06/2024 8:33 AM EST Height 170.2 cm (5' 7") 10/06/2024 8:33 AM EST Body Mass Index 36.27 10/06/2024 8:33 AM EST documented in this encounter Patient Instructions * Patient Instructions* Lisa Whyte LPN - 10/06/2024 8:39 AM EST Patient Instructions - Fall Prevention (This education is for all patients over 65 regardless of symptoms) Remember to take your current medications as prescribed. In order to prevent falls, you are encouraged to: Exercise Utilize assistive/adaptive devices Avoid multifocal lenses when walking Avoid hazards in home Maintain a regular toileting schedule Any questions please contact our office. Preventing Falls in the Home (This education is for all patients over 65 regardless of symptoms) As you get older, falls are more likely. Thats because your reaction time slows. Your muscles and joints may also get stiffer, making them less flexible. Illness, medications, and vision changes can also affect your balance. A fall could leave you unable to live on your own. To make your home safer, follow these tips: Floors Put nonskid pads under area rugs Remove throw rugs Replace worn floor coverings Tack carpets firmly to each step on carpeted stairs. Put nonskid strips on the edges of uncarpeted stairs Keep floors and stairs free of clutter and cords Arrange furniture so there are clear pathways Clean up any spills right away Bathrooms Install grab bars in the tub or shower Apply nonskid strips or put a nonskid rubber mat in the tub or shower Sit on a bath chair to bathe Use bathmats with nonskid backing Lighting Keep a flashlight in each room Put a nightlight along the pathway between the bedroom and the bathroom [employer] Patient Education Copyright 2008 - 2010 [employer] except where otherwise noted Preventing Falls: Exercises to Improve Balance, Flexibility, Strength, and Staying Power (This education is for all patients over 65 regardless of symptoms) Certain types of exercises may help make you less likely to fall. Try the ones below. Or do other exercises that your healthcare provider suggests. Depending on your health, you may need to start slowly. Dont let that stop you. Even small amounts of exercise can help you. Be sure to talk to yourhealthcare provider before starting any exercise program. Improve Balance Many types of exercise can help improve balance. Jonah chi and yoga are good examples. Heres another one to try. You can do it anytime and almost anywhere. Stand next to a counter or solid support. Push yourself up onto your tiptoes. Hold for 5 seconds. If you start to lose your balance, hold on to the counter. Rest and repeat 5 times. Work up to holding for 20 to 30 seconds, if you can. Increase Flexibility Being more flexible makes it easier for you to move around safely. Try exercises like the seated hamstring stretch. Sit in a chair and put one foot on a stool. Straighten your leg and reach with both hands down either side of your leg. Reach as far down your leg as you can. Hold for about 20 seconds. Go back to the starting position. Then repeat 5 times. Switch legs. Build Strength Resistance exercises help build strength. You can do them without equipment. Or you can use weights, elastic bands, or special machines. One such exercise is called the biceps curl. You can hold a 1 pound weight or even a can of soup. Do this exercise at least 3 times a week. Strive for everyday. Sit up straight in a chair. Keep your elbow close to your body and your wrist straight. Bend your arm, moving your hand up to your shoulder. Then slowly lower your arm. Repeat 5 times. Switch to the other arm. Build Your Staying Power Aerobic exercises make your heart and lungs stronger so you can keep moving longer. Walking and swimming are two of the best types of exercises you can do. Using a stationary bike is great, too. Find an aerobic exercise that you enjoy. Start slowly and build up. Even 5 minutes is helpful. Aimfor a goal of 30 minutes, at least 3 times a week. You dont have to do 30 minutes in one session. Break it up and walk a little throughout the day. More Helpful Tips Start easy. Slowly work up to doing more. Talk with your healthcare provider about the best exercises for you. Call senior centers or health clubs about exercise programs. If needed, have a family member watch you walk every so often to check your stability. Exercise with a friend. Choose an activity you both enjoy. Try exercises that you can do anytime, anywhere. Here are two examples. Have someone with you when you first try these: Practice walking by placing one foot right in front of the other. Stand up and sit down 10 times. Repeat this throughout the day. [employer] Patient Education Copyright 2008 - 2010 [employer] except where otherwise noted. Preventing Falls: Moving Safely Using a Cane or Walker (This education is for all patients over 65 regardless of symptoms) Keep the cane away from your feet so you dont trip. A walking aid, such as a cane or walker, can help you stay more independent and avoid falls. Remember to keep your walking aid within easy reach when youre in a chair or in bed. And learn how to use it safely so you dont injure yourself. Using a Cane If you have a stronger side, hold the cane on that side. Get your balance. Move the cane and your weaker leg forward. Support your weight on both the cane and your weaker side. Step with your stronger leg. Start again from step 1. If youre using a folding walker, be sure you know how to lock it open. Check that its locked open before each use. Using a Walker Roll the walker (or lift it, if youre using one without wheels) forward about 12 inches. Step forward with your weaker leg first. Use the walker to help keep your balance. Bring your other foot forward to the center of the walker. Start again from step 1. Helpful Tips Check with your healthcare provider about the right walking aid to use. Ask about a walker with a seat attached. Check the tips of your cane or walker to make sure they have nonskid covers. Move slowly from room to room. Dont swift. Sit down to get dressed. Use a vazquez pack or backpack to keep your hands free. Get help for jobs that mean climbing, even on a stepstool. [employer] Patient Education Copyright 2008 - 2010 [employer] except where otherwise noted. Treating Urinary Incontinence in Men (This education is for all patients over 65 regardless of symptoms) You can't always control the release of urine. You may leak urine. Or you may not be able to hold your urine until you can get to a bathroom. This is called urinary incontinence. The problem can be managed. Talk to your doctor about your treatment options. Taking Medications Prescription medications may help you. They may: Help the sphincter to work better. (This is the muscle that closes to keep urine from leaking out of the bladder.) Help stop the bladder from jluis too often to push urine out. Help the bladder muscles contract with more force. Help relax the sphincter muscle and allow urine to flow more freely. Making Changes to Your Routine Certain changes in your daily routine may help. These include: Avoiding caffeine and alcohol. Using timed voiding. This is following a schedule for drinking fluids and urinating. Doing Kegel exercises daily. These exercises involve tightening the muscles in your sphincter and around your bladder to help strengthen them. Your doctor can explain how to do them. Using a Catheter A catheter is a narrow tube that is inserted through the urethra into the bladder. It drains urine.A condom catheter covers the penis. It channels urine into a collection bag. It is worn most of thetime. Intermittent catheterization means inserting a catheter to drain the bladder, then removing it. This is done on a regular schedule. Having Surgery If other options don't work, surgery may be recommended. If surgery is an option, your healthcare provider can discuss it with you and explain its risks and benefits. Healing After Prostate Surgery Surgery on the prostate gland can cause incontinence. Most often, the incontinence is only for a short time. It clears up when healing is complete. Very rarely, prostate surgery can result in permanent incontinence. documented in this encounter Progress Notes * Jarvis Reinoso MD - 10/06/2024 9:04 AM EST Subjective: Michele Radford is a 79 year old male here today for Chief Complaint Patient presents with Physical-Exam Annual check up History of Present Illness The patient, with a history of hypertension and hypercholesterolemia, presents with concerns about recent health changes. He reports episodes of double vision occurring twice in the past month, each lasting 5-10 minutes. The episodes were not associated with any particular activity and resolved spontaneously. He did see and eye doctor and no problems detected. He also reports increased frequency of urination, particularly at night. He attributes his shortness of breath to weight gain and lack of exercise. He acknowledges poor dietary habits and lack of physical activity over the winter months. He also mentions his 's recent heart attack and stent placement, which has added to his stress. We reviewed recent MyCode results which indicate an increased risk for familial hypercholesterolemia and increased risk for CAD. He is on simvastatin. He is agreeable to recheck of cholesterol No past medical history on file. No past surgical history on file. Review of patient's allergies indicates: Allergen Reactions Penicillins Edema airway Current Outpatient Medications Medication Sig Dispense Refill Multivitamin Adult Oral Tablet Take by mouth. Fish Oil 1000 MG Oral Capsule Take 1 Capsule by mouth in the morning. Garlic 10 MG Oral Capsule Take by mouth. Triamcinolone Acetonide 0.1 % External Ointment (Aristocort) Apply topically to affected area 2 times a day. To affected area. 80 g 0 Sildenafil Citrate 100 MG Oral Tablet Take 1 Tablet by mouth daily as needed for Erectile Dysfunction. 5 Tablet 5 Benazepril HCl 20 MG Oral Tablet (Lotensin) TAKE TWO TABLETS BY MOUTH EVERY MORNING 200 Tablet 0 Simvastatin 40 MG Oral Tablet (Zocor) TAKE ONE TABLET BY MOUTH AT BEDTIME 90 Tablet 1 Potassium Bicarbonate 99 MG Oral Capsule Take by mouth. Vitamin C 1000 MG Oral Tablet Take 1 Tablet by mouth in the morning. hydroCHLOROthiazide 50 MG Oral Tablet (Hydrodiuril) Take 1 Tablet (50 mg) by mouth in the morning. (Patient not taking: Reported on 10/06/2024) 90 Tablet 1 No current facility-administered medications for this visit. Objective: BP 144/90 | Pulse 58 | Temp 97.1 F (36.2 C) (Tympanic) | Resp 18 | Ht 5' 7" (1.702 m) | Wt 231 lb 9.6 oz (105.1 kg) | SpO2 97% | BMI 36.27 kg/m | BSA 2.23 m GEN: NAD NECK: Supple with no LAD, TM, JVD CHEST: CTA B CV: RRR ABD: Soft, NT/ND, No HSM, NABS EXT: No c,c,e Assessment & Plan Hypertension and Hypercholesterolemia Blood pressure is elevated, with a genetic predisposition to high cholesterol given MyCode results.He states that he has not heard anything from them.. Continue Benazepril for hypertension and Simvastatin for cholesterol. Perform fasting blood work to check cholesterol, blood sugar, kidney, and liver function. Monitor blood pressure at home and report readings. Transient Double Vision Two episodes of transient double vision occurred this month. He describes it to me as more of a blurring than actual double vision. He has seen an eye physician. He has no visual complaints at the current time. Consider brain imaging to rule out stroke. Monitor for recurrence and check vision in each eye separately during episodes. Shortness of Breath Shortness of breath may be related to weight and inactivity. Encourage increased physical activity and weight loss. Consider cardiac enzyme test and EKG to rule out a recent heart attack. If normal, consider a stress test. Pt indicates that he is not interested in a stress test and plans to gradually increase his exercise to try and improve conditioning. States that he will let me know if he has ongoing symptoms. Urinary Changes Frequent urination and nocturia are present. Order a PSA blood test to assess for prostate issues. He declines SHRADDHA today. Consider urologist referral based on PSA results. Follow Up: Return in about 6 months (around 04/08/2025) for recheck . | For: recheck 35 min with pt and chart review, documentation Jarvis Reinoso MD documented in this encounter Procedure Notes * Ulysses Perez MD - 10/06/2024 9:33 AM ESTAssociated Order(s): EKG REASON FOR STUDY: dyspnea on exertion;dyspnea on exertion CONCLUSIONS: Normal sinus rhythm Normal ECG When compared with ECG of 06-Oct-2024 09:33, No significant change was found Ventricular Rate: 61 Atrial Rate: 61 PA Interval: 182 QRS Duration: 100 QT/QTc: 440/442 ms P-R-T Energy: 53 : -8 : 47 degrees documented in this encounter Nursing Notes * Lisa Whyte LPN - 10/06/2024 8:24 AM EST The patient has been properly identified by confirmation of name and date of . Chief Complaint Patient presents with Physical-Exam Annual check up Patient reports he has had double vision twice, once when climbing steps and once when just sittingin a chair. Occurred @ 1 month apart. Lasted for 5-10 minutes each timeHas been getting short of breath. Sometimes with activity- long flight of stairs, carrying wood. Usually lasts @ 10-15 seconds and resolves Does not occur with rest documented in this encounter Plan of Treatment Upcoming Encounters Date Type Department Care Team (Late st Contact Info) Description 12/17/2024 3:30 PM EDT Office [place]atology, [address] [place] [address] Giuliana Mena MD [address] [facility] [address] 04/16/2025 8:20 AM EDT [facility] [place] [phone] Jarvis Reinoso MD 226 [facility] [place] [address] 06/23/2025 2:20 PM EST Office Visit Dermatology, [address] [address] Lilian Morillo PA-C [address] [place] [address] [place] [address] Health Maintenance Due Date Last Done Comments Albumin/Creatinine Ratio 1963 Hepatitis C Screening 1963 Adult Wellness Visit 2012 DTap/Tdap Vaccines (2 - Td or Tdap) 04/06/2021 04/06/2011 Depression Screening 08/17/2023 08/17/2022 COVID-19 Vaccine ( season) 2024 Influenza Vaccine (FLU shot) (#1) 2024 04/27/2020, 05/08/2019, 05/15/2018, Additional history exists GFR 10/06/2025 10/06/2024, 09/06, 08/14/2022, Additional history exists Pneumococcal Vaccine: 50+ Years Completed 06/16/2016, 06/11/2015 Zoster Vaccines Completed 12/07/2020, 09/2020, 04/28/2016 *BASELINE EKG FOR HTN Completed 10/06/2024 HPV (Gardasil) Vaccine Aged Out No lo nger eligible based on patient's age to complete this topic Hepatitis B Vaccine Aged Out No longe r eligible based on patient's age to complete this topic MENINGOCOCCAL (MENACTRA/MENVEO) Aged Out No longer eligible based on patient's age to complete this topic Meningitis B Vaccine (Bexsero/Trumemba) Aged Out No longer eligible based on patient's age to complete this topic documented as of this encounter Medical Devices Not on filedocumented as of this encounter Procedures Procedure Name Priority Date/Time Associated Diagnosis Comments PA ECG ROUTINE ECG W/LEAST 12 LDS I&R ONLY Routine 10/06/2024 9:33 AM EST Dyspnea on exertion HTN, goal below 140/90 documented in this encounter Results * TROPONIN T, HIGH SENSITIVITY (10/06/2024 9:50 AM EST) Pathologist [facility] Troponin T, High Sensitivity 13 <=22 ng/L 10/06/2024 4:03 PM EST LAB[facility]ATORY [facility] Blood Venous blood specimen / Unknown Venipuncture / Unknown 10/06/2024 9:50 AM EST 10/06/2024 9:50 AM EST Jarvis Reinoso MD LAB BLOOD ORDERABLES Final Result Performing Organization Address [facility] Phone Number [facility] [address] [place] [address] * (ABNORMAL) PSA (10/06/2024 9:50 AM EST) [facility] PSA 5.05(H) <4.10 ng/mL 10/06/2024 5:07 PM EST LAB[facility]ATORY [facility] Blood Venous blood specimen / Unknown Venipuncture / Unknown 10/06/2024 9:50 AM EST 10/06/2024 9:50 AM EST Jarvis Reinoso MD LAB BLOOD ORDERABLES Final Result Performing Organization Address [facility] Phone Number [address] [address] * EKG (10/06/2024 9:33 AM EST) 10/06/2024 9:33 AM EST Narrative Procedure Note Ulysses Perez MD - 10/06/2024 9:33 AM EST REASON FOR STUDY: dyspnea on exertion;dyspnea on exertion CONCLUSIONS: Normal sinus rhythm Normal ECG When compared with ECG of 06-Oct-2024 09:33, No significant change was found Ventricular Rate: 61 Atrial Rate: 61 PA Interval: 182 QRS Duration: 100 QT/QTc: 440/442 ms P-R-T Energy: 53 : -8 : 47 degrees us Jarvis Reinoso MD EKG Final Resu lt [facility] documented in this encounter Visit Diagnoses Diagnosis HTN, goal below 140/90- Primary Unspecified essential hypertension Dyslipidemia Other and unspecified hyperlipidemia Dyspnea on exertion Other dyspnea and respiratory abnormality Nocturia Risk and functional assessment Screening for unspecified condition Visual changes Unspecified visual disturbance documented in this encounter Care Teams Leather Tacker Relationship Specialty Start Date End Date Jarvis Reinoso MD [address] [address] PCP - General Family Medicine 10/05/20 documented as of this encounter
--- OUTSIDE RECORDS SUMMARY | 2024-10-11 07:56 | External Medical Summary ---
Author Name Unknown Address Unknown Organization [id number]:[facility] [place] [address] [place] [address] Laboratory Report Ordering Provider Test Date Status CHAD BAEZ 10/06/2024 09:50:28 Final Observation Date Value Abnormality Reference (Units ) Status Troponin T 10/06/2024 09:50:28 13 <=22 (ng/ L) Final Performing Location LABORATORY [facility] - [address] [place] [address]
--- OUTSIDE RECORDS SUMMARY | 2024-10-11 07:56 | External Medical Summary ---
Author Name Unknown Address Unknown Organization [id number]:[facility] [place] [address] [facility] [facility] [address] Laboratory Report Ordering Provider Test Date Status SONAMDURA 10/06/2024 09:50:28 Final Observation Date Value Abnormality Reference (Units ) Status BUN 10/06/2024 09:50:28 15 6-20 (mg/dL) Final Creatinine 10/06/2024 09:50:28 1.1 0.6-1.2 (mg/dL) Final Glomerular filtration rate/1.73 sq M.predicted [Volume Rate/Area] in Serum, Plasma or Blood by Creatinine-based formula (CKD-EPI) 10/06/2024 09:50:28 70 >=60 (mL/min) Final eGFR is calculated based on the CKD-EPI 2020 equation. Sodium 10/06/2024 09:50:28 142 135-146 (m mol/L) Final Potassium 10/06/2024 09:50:28 3.7 3.5-5.1 (m mol/L) Final Cl 10/06/2024 09:50:28 104 98-107 (mm ol/L) Final CO2 10/06/2024 09:50:28 25 22-32 (mmo l/L) Final Anion gap 10/06/2024 09:50:28 13 7-15 (mmol /L) Final Glucose 10/06/2024 09:50:28 95 70-120 (mg /dL) Final Albumin 10/06/2024 09:50:28 4.5 3.8-5.0 (g /dL) Final AST (Aspartate aminotransferase) 10/06/2024 09:50:28 35 10-50 (U/L) Final Results may be falsely eleva jeni due to hemolysis. Alk Phos 10/06/2024 09:50:28 93 35-130 (U/ L) Final Bilirubin, Total 10/06/2024 09:50:28 1.1 <=1 .2 (mg/dL) Final Calcium 10/06/2024 09:50:28 9.7 8.4-10.2 ( mg/dL) Final Protein 10/06/2024 09:50:28 7.4 6.0-8.3 (g /dL) Final ALT (Alanine aminotransferase) 10/06/2024 09:50:28 35 10-50 (U/L) Final Performing Location [facility] [place] [facility] [address] [facility] [address]
--- OUTSIDE RECORDS SUMMARY | 2024-10-11 07:56 | External Medical Summary | Summary of Care ---
Author Name Unknown Organization [facility] Address [address] [place] [address] Phone [phone] Care Team Providers Care Pegger Dobby Looms Name Role Phone Jarvis Reinoso MD Primary Care Provider +1- [phone] Reason for Visit * Reason Onset Date Comments Abnormal Genetic Testing 09/22/2024 MyCode Result - LDLR Encounter Details Date Type Department Care Team ([facility] st Contact Info) Description 09/22/2024 Telephone Clinical Genomics [facility] [address] [place], [place] [phone] Genomics, Mycode Clinical [address] [place] [address] Abnormal Genetic Testing (MyCode Result - ... 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 Increased risk for Familial hypercholesterolemia (FH). Please click the link below for a brief summary of current clinical management recommendations for Familial Hypercholesterolemia. LDLR Hx of nonmelanoma skin cancer 10/25/2023 Overview (10/25/2023): basal cell carcinoma (R tragal region of ear 10/27) HTN, goal below 140/90 08/16/2021 Dyslipidemia 08/16/2021 documented as of this encounter (statuses as of 10/07/2024) Immunizations Name Administration Dates Next Due Pneumococcal [...] encounter Miscellaneous Notes * Telephone Encounter - Lucretia Fermin MS - 10/06/2024 4:25 PM EST Genomic Screening and Counseling Result Disclosure Call I spoke with Michele Radford to discuss their genetic test results by phone. They were found to have a LDLR result through participation in the [facility] Initiative. This result is consistent with increased risk for Familial hypercholesterolemia (FH). The following information was reviewed: Genetic Results: POSITIVE. Gene: LDLR Lab: [facility] Increased risk for Familial hypercholesterolemia (FH). Please click the link below for a brief summary of current clinical management recommendations for Familial Hypercholesterolemia. LDLR Plan: Michele Radford was scheduled in person in [place] with Isadora Block on 10/14/24 at 9am We will send an informational packet via mail (address confirmed) with additional information abouttheir result and a family letter for first-degree relatives. Implications for family members: Michele Radford is encouraged to discuss this result with family members. We reviewed the labs policy of offering genetic testing to family members at no charge for 90 days after Michele Anne results report date (90-day window ends on 12/15/24). Close relatives have up to a 50% chance of carrying this variant and having the associated increased risk for Familial hypercholesterolemia (FH). Michele Radford has 2 living first degree relatives, and 0 half-sibs (0 parents, 0 full siblings, 2 children [all over age 18]). Lucretia Fermin MS, [facility] Licensed, Certified Genetic Counselor [facility] Genomic Screening and Counseling Program Clinical Jun [facility] 10/06/2024 * Telephone Encounter - Lucretia Fermin MS - 09/26/2024 5:45 PM EST Genomic Screening and Counseling Result Disclosure Call Attempt I reached out to Michele Radford today to discuss their genetic test results by MyG and phone. I left a message requesting a call back. If I do not hear from him, I will attempt to contact him again by Phone. They were found to have a LDLR result through participation in the [facility]. This result is consistent with increased risk for Familial hypercholesterolemia (FH). Please click the link below for a brief summary of current clinical management recommendations for Familial Hypercholesterolemia. LDLR Information based on chart review Relevant History: - Personal history of high cholesterol Consent: 2021, fam prac Lucertia Dickeysabina, MS, [facility] Licensed, Certified Genetic Counselor [employer] Genomic Screening and Counseling Program 09/26/2024 * Telephone Encounter - Jarvis Reinoso MD - 09/23/2024 8:26 AM EST Noted - will discuss at next ov. * Telephone Encounter - Rupa Dobson CHRA - 09/22/2024 12:14 PM EST Images from the original note were not included. [facility] Clinical Genomics M.CVaishnavi 64-[address] Clinical Genomics [address] [address] 09/22/2024 Jarvis Reinoso MD [address] [facility] [place] [address] Dear Jarvis Reinoso MD, Your patient Michele Radford 1945 has been found to have increased risk for Familial hypercholesterolemia (FH) due to a pathogenic variant in the LDLR gene through participation in the [employer] [facility] Initiative. We will attempt to notify Michele Radford of this result within the next 5 business days and will offer an appointment with our Clinical Genomics team. We encourage you to discuss the result with your patient. We look forward to working with you in caring for Michele Radford regarding this result. We will copy you on any subsequent encounters. Please click the link below for a brief summary of current clinical management recommendations for Familial Hypercholesterolemia. LDLR For questions about this patient and their [employer] results, please use [employer] (Clinical) Ask-A-Docor page the on-call Clinical Genomics provider by calling and having the platen drier operator page [employer]. For non-urgent questions or for more information about this genetic condition, please contact our team (toll-free) at or by emailing [email or web address] Thank you, Latanya Ba MS, [facility] Co-director, [employer] Genomic Screening and Counseling Program Licensed, Certified Genetic Counselor Constance Zapata MS, [facility] Insulation Installer Co-director, [employer] Genomic Screening and Counseling Program Licensed, Certified Genetic Counselor LEANDRO Song, Genetic Counseling Hr Systems Analyst documented in this encounter Plan of Treatment Upcoming Encounters Date Type Department Care Team (Late st Contact Info) Description 12/17/2024 3:30 PM EDT Office Visit Dermatology, [address] [place] [address] Giuliana Mena MD 16 [place] [address] 04/16/2025 8:20 AM EDT [facility] [address] [place] [address] Jarvis Reinoso MD [address] [place] [address] 06/23/2025 2:20 PM EST Office Visit Dermatology, [address] [place] [phone] Lilian Morillo PA-C [address] [place] [address] [place] [address] Health Maintenance Due Date Last Done Comments Albumin/Creatinine Ratio 1963 Hepatitis C Screening 1963 Adult Wellness Visit 2012 DTap/Tdap Vaccines (2 - Td or Tdap) 04/06/2021 04/06/2011 Depression Screening 08/17/2023 08/17/2022 COVID-19 Vaccine (2023- season) 2024 Influenza Vaccine (FLU shot) (#1) [...] filedocumented as of this encounter Care Teams Pegger Dobby Looms Relationship Specialty Start Date End Date Jarvis Reinoso MD [address] [place] [address] PCP - General Family Medicine 10/05/20 documented as of this encounter
--- OUTSIDE RECORDS SUMMARY | 2024-10-11 07:56 | External Medical Summary | Summary of Care ---
Author Name Unknown Organization [facility] Address [address] [place] [address] Phone [phone] Care Team Providers Care Industrial Relations Commissioner Name Role Phone Jarvis Reinoso MD Primary Care Provider +1- [phone] Encounter Details Date Type Department Care Team (Late st Contact Info) Description 09/22/2024 Orders Only Clinical Genomics [address] [place] [address] [place] [address] Abelardo Pearson MD [address] [place] [id number] Allergies Active Allergy Reactions Criticality Noted Date Comments Penicillins Edema airway High 08/15/2010 documented as of this encounter (statuses as of 09/22/2024) Medications Multivitamin Adult Oral Tablet Take by [...] as of this encounter (statuses as of 09/22/2024) Active Problems Problem Noted Date Diagnosed Date At high risk for coronary artery disease 025 Overview (09/22/2024): 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 Increased risk for Familial hypercholesterolemia (FH). Please click the link below for a brief summary of current clinical management recommendations for Familial Hypercholesterolemia. LDLR Hx of nonmelanoma skin cancer 10/25/2023 Overview (10/25/2023): basal cell carcinoma (R tragal region of ear 10/27) HTN, goal below 140/90 08/16/2021 Dyslipidemia 08/16/2021 documented as of this encounter (statuses as of 09/22/2024) Immunizations Name Administration Dates Next Due Pneumococcal [...] 10/06/2024 8:20 AM EST Office Visit [facility] [place] [address] [facility] [place] [address] Jarvis Reinoso MD 226 [facility] [place] [address] 12/17/2024 3:30 PM EDT Office Visit Dermatology[address] [place] [address] Giuliana Mena MD [address] [facility] [address] 06/23/2025 2:20 PM EST Office Visit Dermatology [place] [address] [facility] [place] [address] Lilian Morillo PA-C [address] [place] [address] [place] [address] Health Maintenance Due Date Last Done Comments [...] Procedure Name Priority Date/Time Associated Diagnosis Comments GENETIC MYCODE RESULT Routine 09/22/2024 documented in this encounter Results * GENETIC MYCODE RESULT (09/22/2024) 09/22/2024 us Abelardo Pearson MD LABORATORY Final Res ult OUTSIDE LAB (SEE SCANNED REPORT) documented in this encounter Care Teams Industrial Relations Commissioner Relationship Specialty Start Date End Date Jarvis Reinoso MD PCP - General Family Medicine 10/05/20 documented as of this encounter
--- OUTSIDE RECORDS SUMMARY | 2024-10-11 07:56 | External Medical Summary | Summary of Care ---
Author Name Unknown Organization [facility] Address [address] [place] [address] Phone [phone] Care Team Providers Care Operations Specialist Name Role Phone Jarvis Reinoso MD Primary Care Provider +1- [phone] Reason for Visit * Reason Onset Date Comments Abnormal Genetic Testing 09/22/2024 MyCode Result - LDLR Encounter Details Date Type Department Care Team ([facility] st Contact Info) Description 09/22/2024 Telephone Clinical Genomics [facility] [place] [address] [place], [place] [phone] Genomics, Mycode Clinical [address] [place] [address] Abnormal Genetic Testing (MyCode Result - ... 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 Increased risk for Familial hypercholesterolemia (FH). Please click the link below for a brief summary of current clinical management recommendations for Familial Hypercholesterolemia. LDLR Hx of nonmelanoma skin cancer 10/25/2023 Overview (10/25/2023): basal cell carcinoma (R tragal region of ear 10/27) HTN, goal below 140/90 08/16/2021 Dyslipidemia 08/16/2021 documented as of this encounter (statuses as of 09/27/2024) Immunizations Name Administration Dates Next Due Pneumococcal [...] a LDLR result through participation in the [facility] Community Health Initiative. This result is consistent with increased risk for Familial hypercholesterolemia (FH). Please click the link below for a brief summary of current clinical management recommendations for Familial Hypercholesterolemia. LDLR Information based on chart review Relevant History: - Personal history of high cholesterol Consent: 2021, fam prac Lucretia Fermin MS, [facility] Licensed, Certified Genetic Counselor [facility] Genomic Screening and Counseling Program 09/26/2024 * Telephone Encounter - Jarvis Reinoso MD - 09/23/2024 8:26 AM EST Noted - will discuss at next ov. * Telephone Encounter - Rupa Dobson CHRA - 09/22/2024 12:14 PM EST Images from the original note were not included. [facility] [employer] [facility] 24-80 Clinical Genomics Tony [address] [place] [address] 09/22/2024 Jarvis Reinoso MD [address] [place] [address] Dear Jarvis Reinoso MD, Your patient Michele Radford 1945 has been found to have increased risk for Familial hypercholesterolemia (FH) due to a pathogenic variant in the LDLR gene through participation in the [employer] Community Health Initiative. We will attempt to [...] For questions about this patient and their [employer] results, please use [employer] (Clinical) Ask-A-Docor page the on-call Clinical Genomics provider by calling and having the fur blower operator page [email or web address]. For non-urgent questions or for more information about this genetic condition, please contact our team (toll-free) at or by emailing [email or web address] Thank you, Latanya Ba MS, [facility] Co-director, [employer] Genomic Screening and Counseling Program Licensed, Certified Genetic Counselor Constance Zapata MS, [facility] Plastics Fabricator Or Welder Co-director, [employer] Genomic Screening and Counseling Program Licensed, Certified Genetic Counselor LEANDRO Song, Genetic Counseling Insulation Blower documented in this encounter Plan of Treatment Upcoming Encounters Date Type Department Care Team (Late st Contact Info) Description 10/06/2024 8:20 AM EST Office Visit [facility] [place] [address] [place] [phone] Jarvis Reinoso MD [address] [facility] [place] [address] 12/17/2024 3:30 PM EDT Office Visit Dermatology, [place] [address] [facility] [address] [place] [address] Giuliana Mena MD [address] [place], [place] [address] 06/23/2025 2:20 PM EST [facility] [address] [facility] [place] [address] Lilian Morillo PA-C [address] [place] [address] [place] [address] Health Maintenance Due Date Last Done Comments [...] filedocumented as of this encounter Care Teams Operations Specialist Relationship Specialty Start Date End Date Jarvis Reinoso MD PCP - General Family Medicine 10/05/20 documented as of this encounter
--- OUTSIDE RECORDS SUMMARY | 2024-10-11 07:56 | External Medical Summary | Summary of Care ---
Author Name Unknown Organization [facility] Address [address] [place] [address] Phone [phone] Care Team Providers Care Clinical Specialist Name Role Phone Jarvis Reinoso MD Primary Care Provider +1- [phone] Reason for Visit * Reason Onset Date Comments Abnormal Genetic Testing 09/22/2024 MyCode Result - LDLR Encounter Details Date Type Department Care Team ([facility] st Contact Info) Description 09/22/2024 Telephone Clinical Genomics [facility] [place] [address] [place], [place] [phone] Genomics, Mycode Clinical [address] [place] [address] Abnormal Genetic Testing (MyCode Result - ... 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 Increased risk for Familial hypercholesterolemia (FH). Please click the link below for a brief summary of current clinical management recommendations for Familial Hypercholesterolemia. LDLR Hx of nonmelanoma skin cancer 10/25/2023 Overview (10/25/2023): basal cell carcinoma (R tragal region of ear 10/27) HTN, goal below 140/90 08/16/2021 Dyslipidemia 08/16/2021 documented as of this encounter (statuses as of 09/23/2024) Immunizations Name Administration Dates Next Due Pneumococcal [...] encounter Miscellaneous Notes * Telephone Encounter - Jarvis Reinoso MD - 09/23/2024 8:26 AM EST Noted - will discuss at next ov. * Telephone Encounter - Rupa Dobson CHRA - 09/22/2024 12:14 PM EST Images from the original note were not included. [facility] Screamin Daily Deals M.CVaishnavi Clinical Genomics [address] [address] 09/22/2024 Javris Reinoso MD 226 [facility] [address] Dear Jarvis Reinoso MD, Your patient Michele Radford 1945 has been found to have increased risk for Familial hypercholesterolemia (FH) due to a pathogenic variant in the LDLR gene through participation in the [employer] Community Health Initiative. We will attempt to [...] For questions about this patient and their [employer] results, please use Genomics (Clinical) Ask-A-Docor page the on-call Clinical Genomics provider by calling and having the can operator page [employer]. For non-urgent questions or for more information about this genetic condition, please contact our team (toll-free) at or by emailing [email or web address] Thank you, Latanya Ba, MS, [facility] Co-director, [employer] Genomic Screening and Counseling Program Licensed, Certified Genetic Counselor Constance Zapata, MS, [facility] Finance Administrator Co-director, [employer] Genomic Screening and Counseling Program Licensed, Certified Genetic Counselor LEANDRO Song, Genetic Counseling Airplane Flight Attendant Supervisor documented in this encounter Plan of Treatment Upcoming Encounters Date Type Department Care Team (Late st Contact Info) Description 10/06/2024 8:20 AM EST [facility] [address] [facility] [place] [phone] Jarvis Reinoso MD 226 [facility] [place] [address] 12/17/2024 3:30 PM EDT Office Visit Dermatology[address] [place] [address] Giuliana Mena MD [address] [place] [address] 06/23/2025 2:20 PM EST Office Visit Dermatology [place] [place] [phone] Lilian Morillo PA-C [address] [place] [address] [place] [address] Health Maintenance Due Date Last Done Comments [...] filedocumented as of this encounter Care Teams Clinical Specialist Relationship Specialty Start Date End Date Jarvis Reinoso MD PCP - General Family Medicine 10/05/20 documented as of this encounter
--- OUTSIDE RECORDS SUMMARY | 2024-10-11 07:56 | External Medical Summary | Summary of Care ---
Author Name Unknown Organization [facility] Address [address] [place] [address] Phone [phone] Care Team Providers Care Bodywork Therapist Name Role Phone Jarvis Reinoso MD Primary Care Provider +1- [phone] Reason for Visit * Reason Onset Date Comments Abnormal Genetic Testing 09/22/2024 MyCode Result - LDLR Encounter Details Date Type Department Care Team ([facility] st Contact Info) Description 09/22/2024 Telephone Clinical Genomics [facility] [place] [address] [place], [place] [phone] Genomics, Mycode Clinical [address] [place] [address] Abnormal Genetic Testing (MyCode Result - ... [...] gene variant (c.1775 G>A p.(G592E)) detected via [employer]. Increased risk for Familial hypercholesterolemia (FH). Please [...] encounter Miscellaneous Notes * Telephone Encounter - Rupa Dobson, LEANDRO - 09/22/2024 12:14 PM EST Images from the original note were not included. [facility] [employer] Buzz [address]80 Clinical Genomics [address] [address] 09/22/2024 Jarvis Reinoso MD [address] [place] [address] Dear Jarvis Reinoso MD, Your patient Michele Radford 1945 has been found to have increased risk for Familial hypercholesterolemia (FH) due to a pathogenic variant in the LDLR gene through participation in the [employer] Community Health Initiative. We will attempt to [...] For questions about this patient and their [employer] results, please use Genomics (Clinical) Ask-A-Docor page the on-call Clinical Genomics provider by calling and having the back digger operator page [employer] For non-urgent questions or for more information about this genetic condition, please contact our team (toll-free) at or by emailing [email or web address] Thank you, Latanya Ba MS, [facility] Co-director, [employer] Genomic Screening and Counseling Program Licensed, Certified Genetic Counselor Constance Zapata, MS, [facility] Retail Client Solutions Consultant Co-director, [employer] Genomic Screening and Counseling Program Licensed, Certified Genetic Counselor LEANDRO Song, Genetic Counseling Quahogger documented in this encounter Plan of Treatment Upcoming Encounters Date Type Department Care Team (Late st Contact Info) Description 10/06/2024 8:20 AM EST Office [facility] [place] [address] [facility] [phone] Jarvis Reinoso MD 226 [place] [address] 12/17/2024 3:30 PM EDT Office Visit Dermatology, [address] [place] [address] Giuliana Mena MD 16 [place] [address] 06/23/2025 2:20 PM EST [facility], [facility] 226 [facility] [address] Lilian Morillo PA-C [address] [place] [address] [place] [address] Health Maintenance Due Date Last Done Comments Albumin/Creatinine Ratio 1963 Hepatitis C Screening 1963 Adult Wellness Visit 2012 DTap/Tdap Vaccines (2 - Td or Tdap) 04/06/2021 04/06/2011 *BASELINE EKG FOR HTN 08/19/2021 Depression Screening 08/17/2023 08/17/2022 COVID-19 Vaccine ( - season) 2024 Influenza Vaccine (FLU shot) (#1) [...] filedocumented as of this encounter Care Teams Bodywork Therapist Relationship Specialty Start Date End Date Jarvis Reinoso MD PCP - General Family Medicine 10/05/20 documented as of this encounter
--- OUTSIDE RECORDS SUMMARY | 2024-10-11 07:56 | External Medical Summary | Summary of Care ---
Author Name Unknown Organization [facility] Address [address] [place] [address] Phone [phone] Care Team Providers Care Ditching Machine Operating Engineer Name Role Phone Jarvis Reinoso MD Primary Care Provider +1- [phone] Reason for Visit * Reason Comments Outpatient Testing Encounter Details Date Type Department Care Team (Late st Contact Info) Description 10/06/2024 9:50 AM EST Laboratory Laboratory, [facility] [address] [place] [address] [place], Laboratory [address] [place] [address] Dyslipidemia; HTN, goal below 140/90; Nocturia; Dyspnea on exertion Allergies Active Allergy Reactions Criticality Noted Date Comments Penicillins Edema airway High 08/15/2010 documented as of this encounter (statuses as of 10/06/2024) Medications Multivitamin Adult Oral Tablet Take by mouth. Activ e Fish Oil 1000 MG Oral Capsule Take 1 Capsule by mouth in the morning. Active Garlic 10 MG Oral Capsule Take by mouth. A ctive hydroCHLOROthiaz corina 50 MG Oral Tablet (Hydrodiuril)Ind [...] gene variant (c.1775 G>A p.(G592E)) detected via [employer]. Increased risk for Familial hypercholesterolemia (FH). Please [...] 12/17/2024 3:30 PM EDT Office Visit Dermatology, [address] [place] [address] Giuliana Mena MD 16 [facility] [place] [address] 04/16/2025 8:20 AM EDT [facility] [place] [address] Jarvis Reinoso MD [address] [place] [address] 06/23/2025 2:20 PM EST Office Visit [facility]ologyMary [address] [place] [address] Lilian Morillo PA-C [address] [place] [address] [place] [address] Pending Results Name Type Priority Associated Diagnoses Date /Time LIPID PANEL WITH DIRECT LDL IF TG IS HIGH Lab Routine Dyslipidemia 10/06/2024 9:50 AM EST COMPREHENSIVE METABOLIC PANEL Lab Routine HTN, goal below 140/90 10/06/2024 9:50 AM EST PSA Lab Routine Nocturia 10/06/2024 9:50 AM EST TROPONIN T, HIGH SENSITIVITY Lab Routine Dyspnea on exertion 10/06/2024 9:50 AM EST Health Maintenance Due Date Last Done Comments [...] Diagnoses Diagnosis Dyslipidemia Other and unspecified hyperlipidemia HTN, goal below 140/90 Unspecified essential hypertension Nocturia Dyspnea on exertion Other dyspnea and respiratory abnormality documented in this encounter Care Teams Ditching Machine Operating Engineer Relationship Specialty Start Date End Date Jarvis Reinoso MD [address] [place] [address] PCP - General Family Medicine 10/05/20 documented as of this encounter
--- OUTSIDE RECORDS SUMMARY | 2024-10-11 07:56 | External Medical Summary | Summary of Care ---
Author Name Unknown Organization [facility] Address [address] [place] [address] Phone [phone] Care Team Providers Care Issuing Operator Name Role Phone Jarvis Reinoso MD Primary Care Provider +1- [phone] Reason for Visit * Reason Onset Date Comments Test Results 10/07/2024 Encounter Details Date Type Department Care Team (Late st Contact Info) Description 10/07/2024 Telephone [facility] [address] [facility] [place] [address] Jarvis Reinoso MD 226 [place] [address] Test Results Allergies Active Allergy Reactions Criticality Noted Date Comments Penicillins Edema airway High 08/15/2010 documented as of this encounter (statuses as of 10/09/2024) Medications Multivitamin Adult Oral Tablet Take by [...] as of this encounter (statuses as of 10/09/2024) Active Problems Problem Noted Date Diagnosed Date At high risk for coronary artery disease 025 Overview (09/22/2024): 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. Increased risk for Familial hypercholesterolemia (FH). Please click the link below for a brief summary of current clinical management recommendations for Familial Hypercholesterolemia. LDLR Hx of nonmelanoma skin cancer 10/25/2023 Overview (10/25/2023): basal cell carcinoma (R tragal region of ear 10/27) HTN, goal below 140/90 08/16/2021 Dyslipidemia 08/16/2021 documented as of this encounter (statuses as of 10/09/2024) Immunizations Name Administration Dates Next Due Pneumococcal [...] encounter Miscellaneous Notes * Telephone Encounter - Pernell Lucas OSA - 10/08/2024 6:27 PM EST Labs are scheduled * Telephone Encounter - Bell Braxton LPN - 10/08/2024 1:40 PM EST I called and spoke with the patient and he states that he would like the Rosuvastatin and [facility]omax [facility]. He would like an order for the MRI of the brain for further evaluationof the concerns with vision. Can the labs be placed as well for 2-3 months. help desk analyst: Can you please assist In scheduling a lab appointment for patient in 2-3 months as he would like to have a reminder of when they need to be completed. * Telephone Encounter - Jarvis Reinoso MD - 10/07/2024 6:48 AM EST Please call pt to review results from yesterday. His cholesterol numbers are elevated with total cholesterol 233 and LDL 167. I would suggest that he change from simvastatin 40 mg daily to rosuvastatin 40 mg daily and recheck labs in 2-3 months. His PSA is mildly elevated at 5.05. This does not necessarily mean that he has prostate cancer as benign enlargement of the prostate can elevated the PSA mildly as well. Can offer referral to urologyor could recheck the PSA with labs in a few months to get an idea of the rate of rise. In regards to the more frequent urination, can offer start of flomax. Liver function, kidney function, glucose all fine. Other options for him to consider from appt yesterday - Can offer stress test for eval of the shortness of breath/exercise tolerance (although he indicatedyesterday that he is likely not interested in this) Can offer MRI of the brain for further eval of the episodes with his vision. documented in this encounter Plan of Treatment Upcoming Encounters Date Type Department Care Team (Late st Contact Info) Description 10/14/2024 9:00 AM EDT Office Visit [facility] [address] [place] [address] Isadora Cash, [place] 132 [facility] [place] [address] 12/17/2024 3:30 PM EDT Office Visit Dermatology, [address] [place] [address] Giuliana [facility] MD [facility] [address] 01/05/2025 7:40 AM EDT Laboratory Laboratory, [facility] [address] [place] [address] [facility] [place] [address] 04/16/2025 8:20 AM EDT [facility] [address] [place] [address] Jarvis Reinoso MD 226 [facility] [place] [address] 06/23/2025 2:20 PM EST Office Visit [facility]ology, [place] [facility] [address] [place] [phone] Lilian Morillo PA-C [address] [place] [address] [place] [address] Health Maintenance Due Date Last Done Comments [...] filedocumented as of this encounter Care Teams Issuing Operator Relationship Specialty Start Date End Date Jarvis Reinoso MD [address] [place] [address] PCP - General Family Medicine 10/05/20 documented as of this encounter
--- OUTSIDE RECORDS SUMMARY | 2024-10-11 07:56 | External Medical Summary | Summary of Care ---
Author Name Unknown Organization [facility] Address [address] [place] [address] Phone [phone] Care Team Providers Care Electrical Appliance Preparer Name Role Phone Jarvis Reinoso MD Primary Care Provider +1- [phone] Reason for Visit * Reason Comments Outpatient Testing Encounter Details Date Type Department Care Team (Late st Contact Info) Description 10/06/2024 9:50 AM EST Laboratory Laboratory, [facility] [address] [place] [address] [place], Laboratory [address] [place] [address] Dyslipidemia; HTN, goal below 140/90; Nocturia; Dyspnea [...] gene variant (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 Increased risk for Familial hypercholesterolemia (FH). Please [...] 12/17/2024 3:30 PM EDT Office Visit Dermatology, [address] [place] [address] Giuliana Mena MD 16 [facility] [place] [address] 04/16/2025 8:20 AM EDT [facility] [address] [place] [address] Jarvis Reinoso MD [address] [place] [address] 06/23/2025 2:20 PM EST Office Visit [facility] [address] [place] [address] Lilian Morillo PA-C [address] [place] [address] [place] [address] Pending Results Name Type Priority Associated Diagnoses [...] abnormality documented in this encounter Care Teams Electrical Appliance Preparer Relationship Specialty Start Date End Date Jarvis Reinoso MD [address] [place] [address] PCP - General Family Medicine 10/05/20 documented as of this encounter
--- OUTSIDE RECORDS SUMMARY | 2024-10-11 07:57 | External Medical Summary | Summary of Care ---
Author Name Unknown Organization [facility] Address [address] [place] [address] Phone [phone] Care Team Providers Care Electron Beam Welding Machine Operator Name Role Phone Sasha Bonilla MD Primary Care Provider +1- [phone] Reason for Visit * Reason Comments Medication Refill Encounter Details Date Type Department Care Team (Late st Contact Info) Description 08/01/2024 [facility]ill [facility] [address] [facility] [place] [address] Sasha Bonilla MD 226 [facility] [place] [id number] Dyslipidemia*; HTN, goal below 140/90 Allergies Active Allergy Reactions Criticality Noted Date Comments Penicillins Edema airway High 08/15/2010 documented as of this encounter (statuses as of 08/02/2024) Medications Multivitamin Adult Oral Tablet Take by [...] To affected area. 80 g 3 Active Simvastatin 40 MG Oral Tablet (Zocor)Indicati ons:Dyslipidemi a TAKE ONE TABLET BY MOUTH AT BEDTIME 90 Tablet 3 05/26/2024 8:57 AM EDT 4 08/31/19 25 Active Sildenafil Citrate 100 MG Oral TabletIndicatio ns:Erectile dysfunction, unspecified erectile dysfunction type Take 1 Tablet by mouth daily as needed for Erectile Dysfunction. 5 Tablet 5 4 Active Benazepril HCl 20 MG Oral Tablet (Lotensin)Indic ations:HTN, goal below 140/90 TAKE TWO TABLETS BY MOUTH EVERY MORNING 200 Tablet 4 Active Benazepril HCl 20 MG Oral Tablet (Lotensin)Indic ations:HTN, goal below 140/90 TAKE TWO TABLETS BY MOUTH EVERY MORNING 180 Tablet 3 05/06/2024 7:02 AM EDT 3 08/01/20 24 Discontinu ed(Refill) documented as of this encounter (statuses as of 08/02/2024) Active Problems Problem Noted Date Diagnosed Date Hx of nonmelanoma skin cancer 10/25/2023 Overview (10/25/2023): basal cell carcinoma (R tragal region of ear 10/27) HTN, goal below 140/90 08/16/2021 Dyslipidemia 08/16/2021 documented as of this encounter (statuses as of 08/02/2024) Immunizations Name Administration Dates Next Due Pneumococcal [...] encounter Miscellaneous Notes * Telephone Encounter - Racquel Dukes RP - 08/02/2024 2:40 PM ESTSigned Prescriptions: Disp Refills Benazepril HCl 20 MG Oral Tablet (Lotensin)200 Ta*0 Sig: TAKE TWO TABLETS BY MOUTH EVERY MORNINGAuthorizing Provider: SASHA BONILLA User: RACQUEL DUKES- * Telephone Encounter - Racquel Dukes [facility] - 08/02/2024 2:39 PM ESTSigned Prescriptions: Disp Refills Benazepril HCl 20 MG Oral Tablet (Lotensin)200 Ta*0 Sig: TAKE TWO TABLETS BY MOUTH EVERY MORNINGAuthorizing Provider: SASHA BONILLA User: RACQUEL DUKES- * Telephone Encounter - Racquel Dukes RP - 08/02/2024 2:39 PM EST RX authorized. Zero refills given until upcoming appt. 10/06/2024. Patient will be due for labs. Thanks, Racquel Dukes PharmD Clinical Pharmacist [facility] ([facility]) [phone] 08/02/2024, 2:39 PM * Telephone Encounter - Urmila Butt CPhT - 08/01/2024 3:22 PM EST Pharmacy is requesting a 100-day supply, pre-edited RXs as such. Please review and approve if appropriate. Pending Prescriptions: Disp Refills Benazepril HCl 20 MG Oral Tablet (Lotensi*200 Ta*3 Sig: TAKE TWO TABLETS BY MOUTH EVERY MORNING Last Visit: Visit date not found (in office), Visit date not found (telemedicine) 10/06/2024 If no future appointments scheduled, and last appointment is greater than a year ago, please schedule patient for an appointment Last date the medication was ordered: 06/14/23 Patient Phone Numbers Labs: Lab Results Component Value Date/Time CREAT 1.1 09/17/2023 07:54 AM CREAT 1.22 03/19/2019 12:00 AM CREAT 1.0 06/05/2000 07:00 PM CREAT 1.2 08/20/1996 08:00 AM POTASSIUM 4.0 09/17/2023 07:54 AM POTASSIUM 3.9 03/19/2019 12:00 AM POTASSIUM 4.1 06/05/2000 07:00 PM POTASSIUM 4.0 08/20/1996 08:00 AM TSH 3.54 06/05/2000 07:00 PM LDL 140 (H) 09/17/2023 07:54 AM LDL 218 (HH) 11/02/2001 10:30 AM LDL 300. (HH) 08/20/1996 08:00 AM LDLCALC 148 03/19/2019 12:00 AM ALT 27 09/17/2023 07:54 AM ALT 45 11/02/2001 10:30 AM ALT 42 08/20/1996 08:00 AM HGBA1C 5.5 03/19/2019 12:00 AM documented in this encounter Plan of Treatment Upcoming Encounters Date Type Department Care Team (Late st Contact Info) Description 10/06/2024 8:20 AM EST [facility] [address] [place] [phone] Sasha Bonilla MD [address] [place] [address] 12/25/2024 8:40 AM EDT Office [facility] [facility] [place] [address] Lilian Morillo PA-C [address] [place] [address] [place] [address] Scheduled Orders Name Type Priority Associated Diagnoses Orde r Schedule LIPID PANEL WITH DIRECT LDL IF TG IS HIGH Lab Routine Dyslipidemia Expected: 08/09/2024 (Approximate), Expires: 08/02/2025 ALBUMIN / CREATININE RATIO, URINE Lab Routine HTN, goal below 140/90 Expected: 08/02/2024, Expires: 08/02/2025 COMPREHENSIVE METABOLIC PANEL Lab Routine HTN, goal below 140/90 Expected: 08/09/2024 (Approximate), Expires: 08/02/2025 Health Maintenance Due Date Last Done Comments [...] as of this encounter Visit Diagnoses Diagnosis Dyslipidemia- Primary Other and unspecified hyperlipidemia HTN, goal below 140/90 Unspecified essential hypertension documented in this encounter Care Teams Electron Beam Welding Machine Operator Relationship Specialty Start Date End Date Sasha Bonilla MD PCP - General Family Medicine 10/05/20 documented as of this encounter
--- OUTSIDE RECORDS SUMMARY | 2024-10-11 07:57 | External Medical Summary | Summary of Care ---
Author Name Unknown Organization [facility] Address [address] [place] [address] Phone [phone] Care Team Providers Care Healthcare Advisory Services Manager Name Role Phone Jarvis Reinoso MD Primary Care Provider +1- [phone] Reason for Visit * Reason Comments Mohs Surgery Pt presents today fo r Mohs surgery on R tragal region. PT denies discomfort at this time * Evaluate & Treat - Unlimited Visits (Within 10 days (routine)) - Authorized Specialty Diagnoses / Procedures Referred By Esme t Referred To Contact Dermatology Diagnoses BCC (basal cell carcinoma), ear, right Lilian Morillo PA-C [address] [place] [address] [place] [address] Referral ID Status Reason Start Date Expiration Date Visits Requested Visits Authorized [id number] Authorized Specialty Services Required 10/25/[id number] Encounter Details Date Type Department Care Team (Late st Contact Info) Description 04/15/2024 7:45 AM EDT Office Visit MOHS Surgery [facility] [address] [place] [address] Elaina Rosario MD [address] [place], [place] [address] [address] Basal cell carcinoma (BCC) of tragus of right ear* Allergies Active Allergy Reactions Criticality Noted Date Comments Penicillins Edema airway High 08/15/2010 documented as of this encounter (statuses as of 04/16/2024) Medications Medication Sig Dispensed Refills Start Date End Date Status Multivitamin Adult Oral Tablet Take by mouth. Active Fish Oil 1000 MG Oral Capsule Take 1 Capsule by mouth in the morning. Active Garlic 10 MG Oral Capsule Take by mouth. Active hydroCHLOROthiazide 50 MG Oral Tablet (Hydrodiuril)Indica tions:HTN, goal below 140/90 Take 1 Tablet (50 mg) by mouth in the morning. 90 Tablet 1 07/03/2022 Active Triamcinolone Acetonide 0.1 % External Ointment (Aristocort)Indicat ions:Irritant contact dermatitis, unspecified trigger Apply topically to affected area 2 times a day. To affected area. 80 g 01/23/2023 Active Benazepril HCl 20 MG Oral Tablet (Lotensin)Indicatio ns:HTN, goal below 140/90 TAKE TWO TABLETS BY MOUTH EVERY MORNING 180 Tablet 3 06/14/2023 06/13/2024 Active Simvastatin 40 MG Oral Tablet (Zocor)Indications: Dyslipidemia TAKE ONE TABLET BY MOUTH AT BEDTIME 90 Tablet 3 09/01/2023 08/31/2024 Active Sildenafil Citrate 100 MG Oral TabletIndications:E rectile dysfunction, unspecified erectile dysfunction type Take 1 Tablet by mouth daily as needed for Erectile Dysfunction. 5 Tablet 5 10/03/2023 Active Hospital, Clinic, or Other Facility Administered Medication Ordered Dose Route Frequency Start Date End Date Status Azithromycin (Zithromax) tab 500 mgIndications:Basal cell carcinoma (BCC) of tragus of right ear 500 mg OR ONCE 04/15/2024 04/15/2024 Ended documented as of this encounter (statuses as of 04/16/2024) Active Problems Problem Noted Date Diagnosed Date Hx of nonmelanoma skin cancer 10/25/2023 Overview: basal cell carcinoma (R tragal region of ear 10/27) HTN, goal below 140/90 08/16/2021 Dyslipidemia 08/16/2021 documented as of this encounter (statuses as of 04/16/2024) Immunizations Name Administration Dates Next Due Pneumococcal [...] Assigned at Male 10/03/2023 7:48 AM EST Gender Identity Male 10/03/2023 7:48 AM EST Sexual Orientation Straight 10/03/2023 7: 48 AM EST Job Start Date Occupation Industry Not on file Not on file Not on file documented as of this encounter Last Filed Vital Signs Vital Sign Reading Time Taken Comments Blood Pressure - - Pulse - - Temperature 36.7 C (98.1 F) 04/15/2024 7:44 AM ED T Respiratory Rate - - Oxygen Saturation - - Inhaled Oxygen Concentration - - Weight - - Height - - Body Mass Index - - documented in this encounter Progress Notes * Elaina Rosario MD - 04/15/2024 7:45 AM EDT Ros[facility] Mohs Surgery Note (See separate transcribed operative note for further detail) History: Michele Radford is a 78 year old patient seen at the request of Boyd Davidor evaluation and management of the following lesion: A. Skin, R tragal region of ear, shave: Basal cell carcinoma, at least pigmented nodular type Patient problem list reviewed. Patient medication/allergy lists reviewed. Examination: Michele Radford is alert, oriented and appears well and in no distress. The patient's skin is remarkable for: Right tragal region of ear: 1.6 x 1.4 cm violaceous plaque Impression/Plan: Basal cell carcinoma, nodular and infiltrating type - right tragal region of ear MMS 500 mg azithromycin administered Standard Mohs micrographic technique was utilized to treat this tumor. Microscopic examination of the specimen allowed the Mohs surgeon, whose dual role is to function as both surgeon and pathologist, to precisely identify the location of any remaining tumor or ascertain that the tissue margins were free of tumor. This process of excision of remaining tumor, mapping, and histologic exam was repeated until the tumor was excised completely. Patient identified, procedure verified, site identified and verified with the patient. Time out completed. Surgical removal of the lesion discussed with the patient (risks and benefits, including possibility of scarring, infection, bleeding, recurrence or potential for further treatment). I have specifically identified the site with the patient. I have discussed the fact that the patient will have a scar after the procedure regardless of granulation or repair with sutures. I have discussed that the repair options can range from granulation in some cases to linear or curvilinear closures to larger flaps or grafts. There is a risk of injury to nerves causing temporary or permanent numbness or the inability to move muscles fully such as the inability to lift eyebrows. Questions answered and verbal and written consent was obtained. 1 stage(s) Anesthetic: 0.05% lidocaine with 1:100,000 epinephrine. Repair: Rhombic transposition flap (see separate operative report for details) Absorbable sutures Wound care was discussed verbally, demonstrated and printed wound instructions given as well as wound care supplies. Patient instructed to call with questions or concerns. Personal contact information provided. Follow-up: as needed Elaina Rosario MD Associate, Mohs Micrographic Surgery & Dermatologic Surgery 04/15/2024 documented in this encounter Procedure Notes * Elaina Rosario MD - 04/15/2024 4:00 PM EDT CLINIC NOTES [facility] [place] [address] MOHS MICROGRAPHIC SURGERY Michele Radford [facility] [place] [id number] 04/15/2024 MOHS NUMBER: [id number] [id number]: [id number] OPERATION: SURGICAL EXCISION OF CUTANEOUS MALIGNANCY USING CONTINUOUS MICROSCOPIC CONTROL(MOHS MICROGRAPHIC SURGERY) DIAGNOSIS: infiltrating basal cell carcinoma LOCATION: right tragal region of ear INDICATION FOR MOHS SURGERY: Location,Histologic Type SURGEON: Elaina Rosario M.D. BALL TRUING MACHINE OPERATOR SURGEON: Franco Elliott M.D. BALL TRUING MACHINE OPERATOR SURGEON: NONE ANESTHETIC: Buffered lidocaine 0.5% with epinephrine 1:200,000 CLINICAL WRITER: Elaina Rosario M.D. PREOPERATIVE SIZE OF LESION: 1.6 x 1.4 cm POSTOPERATIVE SIZE OF DEFECT: 1.8 x 1.8 cm ESTIMATED BLOOD LOSS: 3CC PROCEDURE: Time out called. Patient identified. Procedure matches verbalized consent. Site identified and verified and confirmed immediately prior to the procedure. Site marked. Thin layers of tumor-containing tissue were excised at each stage of surgery. These were cut into smaller tissue sections which were examined microscopically in a systematic fashion. Examination of the entire base and superficial peripheral margin allowed microscopic tumor extensions to be located and mapped. In accordance with the Mohs technique, this procedure enabled the maximum amount of normal tissue to be preserved while achieving the highest cure rate for cutaneous malignancy. At each surgical stage, the patient was prepped, the proposed excision outlined on the skin, and the area was reanesthetized as needed. STAGE I: The patient was prepped and the area of surgery was outlined. The operative site was anesthetized with a local injection of buffered lidocaine 0.5% with epinephrine 1:200,000. Following this the clinically apparent portion of the tumor was surgically removed. Hemostasis was achieved with an electrosurgical device. A thin layer of tissue was surgically excised and hemostasis was obtained. A reference map was drawn and the excised tissue was cut into 5 sections for examination in the micrographic laboratory. Edges of each section were dyed in order to achieve precise orientation. Horizontal sectioning of the base and continuous peripheral margins were then carried out and the prepared microscopic sections were examined by Elaina Rosario M.D.. Any areas of residual infiltrating basal cell carcinoma were indicated on the reference map, pinpointing the location in which further tissue excision was necessary. At this point, no further tumor cells were identified and the tumor eradication was considered to be complete for a total of 1 stage of surgery in which multiple microscopic slices of 5 tissue sections had been examined. WOUND MANAGEMENT: This wound was reconstructed with a rhombic transposition flap. The surgical site was locally anesthesized with buffered lidocaine 0.5% with epinephrine 1:200,000. The skin was treated with surgical scrub solution. The beveled wound edges were then excised to 90 degrees relative to the surrounding skin plane. The flap was cut and elevated, and surrounding skin was undermined in all directions. Meticulous hemostasis was obtained with the electrosurgical device. The donor defect was closed. The flap was transposed (carried over intervening normal skin) into the defect and cut to precisely fit the wound. A dog-ear was excised to remove redundant tissue and the defect was closed in a layered fashion. Total volume of Buffered lidocaine 0.5% with epinephrine 1:200,000, for Mohs Surgery and reconstruction was 21 ml. The total area of repair was 12.2 sq. cm Subcutaneous closure material: Interrupted 4-0 Monocryl Cutaneous closure material: Interrupted 5-0 Chromic gut and Running 5-0 Fast gut Elaina Rosario M.D. Associate Department of Dermatology documented in this encounter Nursing Notes * Nevin Mitchell LPN - 04/15/2024 7:44 AM EDT Chief Complaint Patient presents with Mohs Surgery Pt presents today for Mohs surgery on R tragal region. PT denies discomfort at this time Referral Doctor: JOSE Morillo Hypertension History: Yes, refer to medication information for treatment. Diabetes History: No Thyroid History: No Bleeding Tendency: No Artificial Valve or Joint: No Pacemaker: no Defibrillator: no Hepatitis/HIV Exposure: No Smoking: no Consent signed yes documented in this encounter Miscellaneous Notes * Letters - Elaina Rosario MD - 04/15/2024 4:00 PM EDT Department of Dermatology [address] [place], [place] [address] [address] Elaina Rosario M.D. Associate Dermatologic Surgery April 15, 2024 Lilian Morillo [place], [place] [address] Michele Radford [id number] MOHS CASE: [id number] DX: infiltrating basal cell carcinoma Dear Referring Provider, Thank you for referring Michele Radford for treatment of infiltrating basal cell carcinoma of the right tragal region of ear. The tumor was treated today with Mohs micrographic surgery, requiring 1 stage for complete removal. The surgical wound was repaired with a rhombic transposition flap. Thanks again for letting us participate in the care of your patient. Yours truly, Elaina Rosario M.D. documented in this encounter Plan of Treatment Upcoming Encounters Date Type Department Care Team (Late st Contact Info) Description 10/06/2024 8:20 AM EST Office Visit Family [facility] [place] [facility] [place] [address] [facility] [phone] Jarvis Reinoso [facility] [address] [facility] [address] 12/25/2024 8:40 AM EDT Office Visit Dermatology, [place] [address] [facility] [address] Lilian Morillo PA-C [address] [place] [address] [place] [address] Health Maintenance Due Date Last Done Comments Albumin/Creatinine Ratio 1963 Hepatitis C Screening 1963 Adult Wellness Visit 2012 DTap/Tdap Vaccines (2 - Td or Tdap) 04/06/2021 04/06/2011 *BASELINE EKG FOR HTN 08/19/2021 Depression Screening 08/17/2023 08/17/2022 COVID-19 Vaccine ( season) 2024 Influenza Vaccine (FLU shot) (#1) 2024 04/27/2020, 05/08/2019, 05/15/2018, Additional history exists GFR 09/17/2024 09/17/2023, 04/2023, 06/20/2022, Additional history exists Pneumococcal Vaccine: 65+ Years Completed 06/16/2016, 06/11/2015 Zoster Vaccines Completed [...] as of this encounter Visit Diagnoses Diagnosis Basal cell carcinoma (BCC) of tragus of right ear- Primary documented in this encounter Care Teams Healthcare Advisory Services Manager Relationship Specialty Start Date End Date Jarvis Reinoso MD [address] [facility] [place] [address] PCP - General Family Medicine 10/05/20 documented as of this encounter
--- OUTSIDE RECORDS SUMMARY | 2024-10-11 07:57 | External Medical Summary | Summary of Care ---
Author Name Unknown Organization [facility] Address [address] [place] [address] Phone [phone] Care Team Providers Care Emissions Testing And Repair Technician Name Role Phone Jarvis Reinoso MD Primary Care Provider +1- [phone] Reason for Visit * Reason Onset Date Comments Health Maintenance 08/11/2024 Encounter Details Date Type Department Care Team (Late st Contact Info) Description 08/11/2024 Telephone [facility] [place] [facility] [address] [facility] [facility] [place] [address] Jarvis Reinoso MD [address] [place] [address] Health Maintenance Allergies Active Allergy Reactions Criticality Noted Date Comments Penicillins Edema airway High 08/15/2010 documented as of this encounter (statuses as of 08/11/2024) Medications Multivitamin Adult Oral Tablet Take by [...] 3 Active Simvastatin 40 MG Oral Tablet (Zocor)Indicatio ns:Dyslipidemia TAKE ONE TABLET BY MOUTH AT BEDTIME 90 Tablet 3 05/26/2024 8:57 AM EDT 4 08/31/19 25 Active Sildenafil Citrate 100 MG Oral TabletIndication s:Erectile dysfunction, unspecified erectile dysfunction type Take 1 Tablet by mouth daily as needed for Erectile Dysfunction. 5 Tablet 5 4 Active Benazepril HCl 20 MG Oral Tablet (Lotensin)Indica tions:HTN, goal below 140/90 TAKE TWO TABLETS BY MOUTH EVERY MORNING 200 Tablet 08/09/2024 10:41 AM EST 4 Active documented as of this encounter (statuses as of 08/11/2024) Active Problems Problem Noted Date Diagnosed Date Hx of nonmelanoma skin cancer 10/25/2023 Overview (10/25/2023): basal cell carcinoma (R tragal region of ear 10/27) HTN, goal below 140/90 08/16/2021 Dyslipidemia 08/16/2021 documented as of this encounter (statuses as of 08/11/2024) Immunizations Name Administration Dates Next Due Pneumococcal [...] encounter Miscellaneous Notes * Telephone Encounter - Kay Maldonado LPN - 08/11/2024 8:26 AM EST Care Gaps Comprehensive Care Outreach Last Office/Telemedicine Visit: Visit date not found (in office), Visit date not found (telemedicine) Next Office Visit: 10/06/2024 Hemoglobin AIC Results: No results found for: "HEMOGLOBIN A1C" BP Readings from Last 1 Encounters: 10/03/23 132/86 Reviewed Health Maintenance below: Health Maintenance Topic Date Due Albumin/Creatinine Ratio Never done Hepatitis C Screening Never done Adult Wellness Visit Never done DTap/Tdap Vaccines (2 - Td or Tdap) 04/06/2021 *BASELINE EKG FOR HTN Never done Depression Screening 08/17/2023 Urine already ordered awv Care Gap Outreach Action Taken: [employer] message sent documented in this encounter Plan of Treatment Upcoming Encounters Date Type Department Care Team (Late st Contact Info) Description 10/06/2024 8:20 AM EST Office Visit [facility] [address] [place] [phone] Jarvis Reinoso MD [address] [place] [address] 12/25/2024 8:40 AM EDT Office Visit Dermatology, [place] [address] [place] [phone] Lilian Morillo, PANorma [address] [place] [address] [place] [address] Health Maintenance Due Date Last Done Comments [...] filedocumented as of this encounter Care Teams Emissions Testing And Repair Technician Relationship Specialty Start Date End Date Jarvis Reinoso MD PCP - General Family Medicine 10/05/20 documented as of this encounter
--- OUTSIDE RECORDS SUMMARY | 2024-10-11 07:57 | External Medical Summary | Summary of Care ---
Author Name Unknown Organization [facility] Address [address] [facility] [place] [address] Phone [phone] Care Team Providers Care Tool Or Die Drawing Checker Name Role Phone Jarvis Reinoso MD Primary Care Provider +1- [phone] Encounter Details Date Type Department Care Team (Late st Contact Info) Description 08/05/2024 Orders Only PATIENT PORTAL DO NOT DELETE THIS DEPT USED BY [place] [id number] Allergies Active Allergy Reactions Criticality Noted Date Comments Penicillins Edema airway High 08/15/2010 documented as of this encounter (statuses as of 08/05/2024) Medications Multivitamin Adult Oral Tablet Take by [...] MOUTH EVERY MORNING 200 Tablet 4 Active documented as of this encounter (statuses as of 08/05/2024) Active Problems Problem Noted Date Diagnosed Date Hx of nonmelanoma skin cancer 10/25/2023 Overview (10/25/2023): basal cell carcinoma (R tragal region of ear 10/27) HTN, goal below 140/90 08/16/2021 Dyslipidemia 08/16/2021 documented as of this encounter (statuses as of 08/05/2024) Immunizations Name Administration Dates Next Due Pneumococcal [...] 10/03/2023 Does the household have a re lar source of income? (Household - for ages [...] 10/06/2024 8:20 AM EST [place] [address] Jarvis Reinoso MD [address] [place] [address] 12/25/2024 8:40 AM EDT Office Visit DermatologyMary [address] [place] [address] Lilian Morillo PA-C [address] [place] [address] [place] [address] Health Maintenance Due Date Last Done Comments [...] filedocumented as of this encounter Care Teams Tool Or Die Drawing Checker Relationship Specialty Start Date End Date Jarvis Reinoso MD PCP - General Family Medicine 10/05/20 documented as of this encounter
--- NOTE | 2024-10-11 10:45 | XRay Report ---
XR finger(s) LT min 2V CLINICAL HISTORY: l thumb swelling and pain COMPARISON: None FINDINGS: There are small chronic osseous densities adjacent to the base of the first distal phalanx , unfused ossicles or sequela of old injury. No acute fracture or dislocation. No erosion or signific ant degenerative change. No evidence of osteomyelitis. No radiopaque foreign body. IMPRESSION: No acute osseous finding. ACT 112: Negative or not required by law. Electronically signed by: Lucas Lopez M.D. 10/11/2024 10:43 AM
[2024-10-11 11:15] VITALS: PULSE 83; TEMP 98.4; O2SAT 95
--- NOTE | 2024-10-11 12:05 | Hospitalist Progress Note ---
Date of Service October 11, 2024 Assessment & Plan Admission and Anticipated Discharge Date Admission Date: October 10, 2024 Results & Data Results & Data Vital Signs (Past 12 Hours) Vital Signs Temp Pulse Resp BP BP Pulse Ox O2 Del Method 10/11/24 11:14 36.9 C 83 18 147/91 H 95 Room Air 10/11/24 10:18 154/92 H 10/11/24 07:07 36.6 C 82 18 183/108 H 94 Room Air 10/11/24 03:55 76 150/90 H 10/11/24 03:04 36.6 C 63 20 163/102 H 96 Room Air 10/11/24 00:43 174/92 H
--- OUTSIDE RECORDS SUMMARY | 2024-10-11 15:06 | External Medical Summary | Summary of Care ---
Author Name Unknown Organization [facility] Address [address] [facility] [place] [address] Phone [phone] Care Team Providers Care Pharmacist Apprentice Name Role Phone Jarvis Reinoso MD Primary Care Provider +1- [phone] Reason for Visit * Reason Onset Date Comments Triage Advice 10/10/2024 Elevated blood p ressure-184/135 Encounter Details Date Type Department Care Team (Late st Contact Info) Description 10/10/2024 [facility]phone [facility] [address] [facility] [facility] [place] [address] Jarvis Reinoso MD [address] [place] [address] Triage Advice (Elevated blood pressure-184... 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 Increased risk for Familial hypercholesterolemia (FH). Please click the link below for a brief summary of current clinical management recommendations for Familial Hypercholesterolemia. LDLR Hx of nonmelanoma skin cancer 10/25/2023 Overview (10/25/2023): basal cell carcinoma (R tragal region of ear 10/27) HTN, goal below 140/90 08/16/2021 Dyslipidemia 08/16/2021 documented as of this encounter (statuses as of 10/10/2024) Immunizations Name Administration Dates Next Due Pneumococcal [...] Telephone Encounter - Jarvis Reinoso MD - 10/10/2024 4:52 PM EST noted * Telephone Encounter - Ольга Guallpa LPN - 10/10/2024 4:26 PM EST Called and spoke with pt. Pt states that he is currently at the [facility] ER * Telephone Encounter - Edwina Hill OSA - 10/10/2024 1:28 PM EST Elevated blood pressure-184/135, denies any headache, chest pain, numbness,flashers. Please reach out to patient to assist. documented in this encounter Plan of Treatment Upcoming Encounters Date Type Department Care Team (Late st Contact Info) Description 10/14/2024 9:00 AM EDT Office Visit [facility] [address] [place] [address] Isadora Cash, [place] [address] [place] [address] 12/17/2024 3:30 PM EDT Office Visit Dermatology, [place] [address] [place] [address] Giuliana Mena MD [address] [facility] [address] 01/05/2025 7:40 AM EDT Laboratory Laboratory, Mary [place]ring [address] [facility] [place] [phone] [facility] [address] [facility] [place] [address] 04/16/2025 8:20 AM EDT [facility] [place] [facility] [address] [facility] [place] [address] Jarvis Reinoso MD [address] [facility] [place] [address] 06/23/2025 2:20 PM EST [facility] [place] [address] Lilian Morillo PA-C [address] [place] [address] [place] [address] Health Maintenance Due Date Last Done Comments [...] filedocumented as of this encounter Care Teams Pharmacist Apprentice Relationship Specialty Start Date End Date Jarvis Reinoso MD [address] [place] [address] PCP - General Family Medicine 10/05/20 documented as of this encounter
--- OUTSIDE RECORDS SUMMARY | 2024-10-11 15:07 | External Medical Summary | Summary of Care ---
Author Name Unknown Organization [facility] Address [address] [place] [facility] [place] [address] Phone [phone] Care Team Providers Care [employer] Name Role Phone Jarvis Reinoso MD Primary Care Provider [phone] Reason for Visit * Reason Onset Date Comments Triage Advice 10/10/2024 Elevated blood p ressure-184/135 Encounter Details Date Type Department Care Team (Late st Contact Info) Description 10/10/2024 [facility] [place] [address] [place] [address] Jarvis Reinoso MD [address] [place] [address] Triage Advice (Elevated blood pressure-184... 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 Increased risk for Familial hypercholesterolemia (FH). Please [...] states that he is currently at the [facility] ER * Telephone Encounter - Edwina Hill OSA - 10/10/2024 1:28 PM EST Elevated blood pressure-184/135, denies any headache, chest pain, numbness,flashers. Please reach out to patient to assist. documented in this encounter Plan of Treatment Upcoming Encounters Date Type Department Care Team (Late st Contact Info) Description 10/14/2024 9:00 AM EDT Office Visit [facility] [address] [place] [address] Isadora Cash, [place] [address] [place] [address] 12/17/2024 3:30 PM EDT Office Visit Dermatology, [place] [address] [place] [address] Giuliana Mena MD [address] [facility] [address] 01/05/2025 7:40 AM EDT Laboratory Laboratory, Mary Herring [address] [facility] [place] [id number] [facility] [address] [facility] [place] [address] 04/16/2025 8:20 AM EDT [facility] [place] [facility] [address] [place] [address] Jarvis Reinoso MD [address] [place] [address] 06/23/2025 2:20 PM EST [facility] [place] [address] Lilian Morillo PA-C [address] [place] [address] [place] [address] Health Maintenance Due Date Last Done Comments [...] filedocumented as of this encounter Care Teams [employer] Relationship Specialty Start Date End Date Jarvis Reinoso MD [address] [place] [place] [address] PCP - General Family Medicine 10/05/20 documented as of this encounter
--- NOTE | 2024-10-11 15:13 | Discharge Summary ---
Discharge Summary Date of Service October 11, 2024 Principal Dx & Hospital Course #1 = Principal Diagnosis (1) Hypertensive urgency: (2) Hypercholesteremia: Plan Pt is a 79yoM with PMHx significant for HTN and HLD who presented with concern for Significantly elevated blood pressure readings at home. Was on benazepril 40 mg daily. BP readings in the hospital of 190s/100s. Reported ALMARAZ at home but was asymptomatic in the ED and during hospitalization. EKG was NSR, trop normal at 6.5 and echo normal with EF 55-60%, no significant valvular abn, RV systolic function normal Chest XRAY noting "aorta is ectatic with mild arch calcification" head and neck CTA with stenoses Chest CTA noting several pulmonary nodules and follow up CT chest in 3 months. Also noted "Mild mediastinal and bilateral hilar adenopathy, nonspecific in nature" and "There is coronary atherosclerosis" His BP was controlled with resuming his home benazapril (formulary alternative in the hospital of Enalapril) and he received one dose of amlodipine 5mg on admission with noted improvement of BP overnight. He was transitioned to HCTZ 12.5mg in the AM with his home benazapril and BP decreased slowly in the AM from 183/108 to 147/91 on discharge. Reportedly pt was on HCTZ 25mg in the past with Benazapril. Will likely need further titration of the HCTZ after discharge. He noted no symptoms with the decrease in blood pressure on discharge. PCP followup for continued med titration and further BP control. He was started on a baby aspirin for the coronary atherosclerosis noted. he also noted left thumb pain and swelling on the day of discharge. XR of the thumb was negative and uric acid was also normal. Likely sprained, advised RICE and PCP followup. Close PCP followup after discharge. Notes For Next Care Provider BP monitoring and med adjustment as needed Follow up chest CT in 3 months Follow up on left thumb injury Medication Changes From Visit Hydrochlorothiazide 12.5mg daily- titrate dose as needed for BP control aspirin 81mg Admission HPI Per Admitting Provider Patient is 79-year-old male with PMH HTN, HLD presented to ER with complaint of high blood pressure x 1 day. Per outpatient chart review seen by PCPs office on 10/06/2024 and BP was 144/90. Patient is on benazepril 40mg daily. He reports was previously also on HCTZ 25 mg daily. Patient states he self stopped HCTZ ap proximately 1 year ago. Patient reports since his blood pressures had been fairly controlled at PCPs office it was not restarted. Patient states typically will take his blood pressure at home once a month and SBP usually around 140. He reports his had a cardiac cath and stent placed last week and is monitoring her blood pressures at home so patient decided this week that he would start monitoring his blood pressure at home as well. States yesterday blood pressure 180s over 110s. He states he took his blood pressure several more times and continued to be elevated so he came to the ER for further evaluation. Patient denies any SANZ, chest pain, dizziness. He reports will have shortness of breath with exertion of carrying wood and sometimes exertion with walking on a incline. He states he is able to climb 2 sets of stairs without any shortness of breath. He states over the past several months has had 2 episodes of blurry vision. Last was 1 month ago. Did not check his BP's at those times. Denies fever/chills, diaphoresis, N/V/D/C, syncope, other vision changes, neck pain, CP, orthopnea, palpitations, cough, sore throat, rhinorrhea, abdominal pain, paresthesias, weakness, extremity weakness, extremity edema, rashes, urinary symptoms. Admission Exam Per Admitting Provider General: no distress, overweight male Head: normocephalic, atraumatic Eyes: conjunctiva non-injected, anicteric ENT: normal inspection external ears, nose, mucous membranes moist Neck: supple, trachea midline Lungs: clear, no respiratory distress, no wheezing/rhonchi/rales CV: RRR, no murmur, no pretibial edema Abd: normal BS, soft, non-tender Ext: no cyanosis, no calf tenderness Neuro: A&O x 3, no focal deficits noted, normal affect Skin: warm, dry Discharge Exam General: Alert, oriented. No acute distress Psych: Appropriate mood and affect Neuro: No gross deficits HEENT: NC/AT CV: RRR Resp: Breath sounds clear bilaterally, no increased effort of breathing Abdomen: Soft, nontender Extremities: No edema in lower extremities bilaterally. Updated Medication List Medication Instructions Recorded Confirmed Type simvastatin 40 mg tablet 40 mg PO HS #90 tabs 12/26/19 10/10/24 Rx garlic 300 mg PO DAILY 06/24/20 10/10/24 History mshgifibfmdg-tzt-eremd acid-vit 1 tab PO DAILY 06/24/20 10/10/24 History K-lycop 400 mcg-20 mcg-370 mcg tablet (Men's 50 Plus Multivitamin) omega-3 fatty acids 1,000 mg 1,000 mg PO DAILY 06/24/20 10/10/24 History capsule (Fish Oil Concentrate) benazepril 20 mg tablet 40 mg PO DAILY 10/10/24 10/10/24 History potassium 99 mg tablet 99 mg PO DAILY 10/10/24 10/10/24 History aspirin 81 mg tablet,delayed 81 mg PO DAILY #30 tabs 10/11/24 Rx release hydrochlorothiazide 25 mg tablet 12.5 mg (1/2 x 25 mg) PO QAM #30 10/11/24 Rx tabs Hospital Stay Data Consultations 10/10/24 19:16 ED Decision to Admit Stat Diagnostic Imagining Performed 10/10/24 17:28 CT angio chest PE protocol Stat CT angio head wo/w Stat CT angio neck with con Stat Chest X-Ray 10/10/24 15:15 EXAM: Radiograph of the Chest 1 View INDICATION: Hypertension TECHNIQUE: Frontal view of the chest. COMPARISON: No relevant prior studies available. FINDINGS: Lungs and pleural spaces: No consolidation or pulmonary edema. No pleural effusion or pneumothorax. Heart: Shape and configuration within normal limits allowing for technique. Mediastinum: Normal contour. Bones/joints: No fracture, erosion or dislocation. Soft tissues: No abnormality noted. No radiopaque foreign body noted. Vasculature: The aorta is ectatic with mild arch calcification. Upper abdomen: No abnormality noted. IMPRESSION: No acute cardiopulmonary disease. Ectatic aorta is generally an incidental finding. If there is clinical concern for acute aortic abnormality, CT angiogram of the chest may be of benefit. ACT 112: N/A Electronically signed by Veronica Love 10-10-2024 4:24 PM Chest CTA 10/10/24 17:28 Clinical history: Dyspnea on exertion Technique: Axial computed tomography images were obtained of the chest after the administration of intravenous contrast according to the CT angiogram protocol Findings: There is no definite sign of pulmonary embolism. There is a 6 mm nodule in the superior segment of the left lower lobe. There is a 14 x 5 mm oval mild opacity in the left upper lobe adjacent to the hilum that could represent either lymph node or a parenchymal nodule. There is a 1 cm nodule in the left upper lobe also. There is no pleural effusion or pneumothorax. There is no sign of pulmonary fibrosis or other diffuse interstitial process. There is peripheral bronchial occlusion in both lower lobes There is mild mediastinal and bilateral hilar adenopathy, with lymph nodes measuring up to 1.3 cm in short axis. The thoracic aorta appears unremarkable with no sign of aneurysm or dissection. There is no pericardial effusion. There is coronary atherosclerosis There is a partially visualized left renal cyst. No fracture is seen. No focal osseous lesion is evident Impression: 1. No definite sign of pulmonary embolism 2. Mild mediastinal and bilateral hilar adenopathy, nonspecific in nature 3. Several pulmonary nodules, indeterminate in nature. A follow-up chest CT is recommended in 3 months Electronically signed by Murali Herrera 10-10-2024 6:29 PM Head CTA 10/10/24 17:28 Technique: Axial computed tomography images were obtained of the brain before and after the administration of intravenous contrast according to the CT angiogram protocol Findings: There is mild calcified plaque within the cavernous and supraclinoid segments of the internal carotid arteries bilaterally, without stenosis No definite stenosis or aneurysm is seen of the anterior, middle, or posterior cerebral artery circulations. The visualized vertebral arteries and the basilar artery appear unremarkable Impression: No definite stenosis or aneurysm of the intracranial arteries Electronically signed by Murali Herrera 10-10-2024 6:32 PM Neck CTA 10/10/24 17:28 Technique: Axial computed tomography images were obtained of the neck after the administration of intravenous contrast according to the CT angiogram protocol Findings: No stenosis is seen of the common carotid arteries bilaterally. There is calcified plaque in the left carotid bulb, without stenosis. The remainder of the internal carotid arteries appear patent bilaterally. No stenosis of the external carotid arteries is seen The vertebral arteries are patent bilaterally with no significant stenosis seen. 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 Impression: No definite stenosis of the neck arteries Electronically signed by Murali Herrera 10-10-2024 6:35 PM Finger X-Ray 10/11/24 10:12 XR finger(s) LT min 2V CLINICAL HISTORY: l thumb swelling and pain COMPARISON: None FINDINGS: There are small chronic osseous densities adjacent to the base of the first distal phalanx, unfused ossicles or sequela of old injury. No acute fracture or dislocation. No erosion or significant degenerative change. No evidence of osteomyelitis. No radiopaque foreign body. IMPRESSION: No acute osseous finding. ACT 112: Negative or not required by law. Electronically signed by: Lucas Lopez M.D. 10/11/2024 10:43 AM Pending Results Patient Have Any Pending Studies at Discharge: No Discharge Instructions Given to Patient (Per Discharging Provider) Mr. Radford, You were seen and treated for a very high blood pressure. We added another medication to your home benazepril 40mg called hydrochlorothiazide. Your blood pressure improved significantly and you tolerated that well. To continue with a further gradual decline in your blood pressure readings, it is very likely that your blood pressure medications might need further adjustment after discharge. Your primary care provider, Dr Reinoso will be able to help with that. Our office will set you up with a follow up appointment with him, expect a call on Sunday to help set that up. thankfully, your echocardiogram was negative. We also started you on a baby aspirin. Concerning your left thumb, it is likely that it is sprained. However please seek followup with your primary care provider if your symptoms worsen or do not improve. You can take over the counter tylenol to help with any associated pain. You also had some lung nodules noted on chest imaging that you will need repeat imaging for in 3 months, as recommended by the radiologist. Your primary care provider can help with ordering that for you. Again, please keep close follow up with your primary care provider after discharge. Please do not hesitate to come back to the emergency room if your symptoms worsen or return. It was a pleasure taking care of you while you were here. Total Time Total Time Spent Total Time Spent (In Minutes): 60
[2024-10-11 15:39] VITALS: BP 163/102
--- NOTE | 2024-10-11 23:03 | Electrocardiogram Report ---
Test Reason : Blood Pressure : */* mmHG Vent. Rate : 74 BPM Atrial Rate : 74 BPM P-R Int : 180 ms QRS Dur : 94 ms QT Int : 424 ms P-R-T Axes : 68 -24 65 degrees QTcB Int : 470 ms Normal sinus rhythm with sinus arrhythmia Normal ECG No previous ECGs available Confirmed by Master Casillas ([id number]) on 10/11/2024 11:02:58 PM Referred By: REFERRED SELF Confirmed By: Master Casillas
--- NOTE | 2024-10-14 05:45 | Electrocardiogram Report ---
Test Reason : Blood Pressure : */* mmHG Vent. Rate : 63 BPM Atrial Rate : 63 BPM P-R Int : 172 ms QRS Dur : 100 ms QT Int : 412 ms P-R-T Axes : 40 -9 61 degrees QTcB Int : 421 ms Normal sinus rhythm Septal infarct , age undetermined Abnormal ECG No previous ECGs available Confirmed by Master Casillas ([id number]) on 10/14/2024 5:45:14 AM Referred By: REFERRED SELF Confirmed By: Master Casillas
== END 2024-10-11 16:13 | disposition home or self-care (01) ==
LOC: 2N 15:05 → ED 15:05 → SUATTDRO 20:29 → 2N 22:00